=== PATIENT | male | born 1975 | race Caucasian/White ===

== ENCOUNTER → 2017-09-12 16:29 | Outpatient (REF) | payer BC, SELFPAY ==
[2017-09-12 21:43] LABS: HCT 42.4 % (40.0-50.0); HGB 14.3 g/dL (13.5-17.5); Mean Corp. HGB Concentration 33.7 g/dL (32.0-36.0); Mean Corpuscular Hemoglobin 29.9 pg (27.0-33.0); Mean Corpuscular Volume 88.7 fL (80-95); Mean Platelet Volume 11.5 fL (8.0-11.0); Platelet Count 309 x1000/uL (130-400); RBC 4.78 m/cumm (4.50-6.00); RBC Distribution Width 13.2 % (11.8-14.1)
[2017-09-12 21:59] LABS: ALT 67 U/L (12-78); AST 29 U/L (15-37); Albumin 4.2 g/dL (3.4-5.0); Alkaline Phosphatase 77 U/L (46-116); Anion Gap 10.4 mmol/L (3-11); BUN 13 mg/dL (7-18); Bilirubin, Total 0.3 mg/dL (0.2-1.0); CO2 25.6 mmol/L (21.0-32.0); CREATININE 1.16 mg/dL (0.70-1.30); Calcium 8.5 mg/dL (8.5-10.1); Chloride 104 mmol/L (98-107); Glucose 97 mg/dL (70-100); Potassium 3.9 mmol/L (3.5-5.1); Sodium 140 mmol/L (136-145); TSH (W/Ref FT4) 2.36 uIU/mL (0.358-3.74); Total Protein 7.3 g/dL (6.4-8.2)
[2017-09-12 23:03] LABS: ESR 11 MM/HR (0-15)
[2017-09-15 11:45] LABS: HIV-1/2 Ag & Ab Screen Negative (NEGAT)
[2017-09-15 13:19] LABS: Lyme Ab w Rflx to Lyme Confirm Negative
== END ==
LOC: NCHCN 16:29
PROVIDERS: PCP Nurse Practitioner Family; Visit Provider Family Medicine
DX: R53.81 Other malaise (principal); R59.1 Generalized enlarged lymph nodes
CPT/HCPCS: 80053; 85027; 85652; 87389; 84443; 86618

== ENCOUNTER 2018-05-08 12:12 | Observation (INO) | payer BC, SELFPAY ==
[2018-05-08 12:26] VITALS: BP 127/92; PULSE 89; RESP 20; TEMP 37.1; O2SAT 99
--- NOTE | 2018-05-08 12:37 | W.ED.GENAD ---
Discharge Plan Disposition Patient Disposition: [facility] INPATIENT Condition: Good Discharge Details Chief Complaint: Abd Prob Clinical Impression: Diverticulitis Primary Care Provider: Melissa Mcmullen ED Provider: Erick Gtz Home Meds and New Rx's Prescriptions: New ciprofloxacin HCl [Cipro] 500 mg tablet 500 mg PO BID Qty: 20 RF: 0 metronidazole [Flagyl] 500 mg tablet 500 mg PO TID Qty: 21 RF: 0 No Action acetaminophen [Tylenol] 325 MG tablet 650 mg PO Q6H PRN RF: 0 ibuprofen 200 MG tablet 600 mg PO BID PRN RF: 0 loratadine [Claritin] 10 MG tablet 10 mg PO DAILY RF: 0 sertraline 50 mg Tablet 50 mg PO DAILY RF: 0 Medical Decision Making This is a pleasant 42-year-old male with a past medical history of left orchiectomy, who presents today for abdominal pain and 1-2 days of diarrhea. Pain started this morning in the left upper abdominal quadrant, and is now radiated to his right periumbilical region. He has not eaten anything all day. Physical exam demonstrates notable tenderness the right lower quadrant right periumbilical region. No flank or CVA tenderness. No testicular tenderness on exam. Diarrhea is nonbloody and he has no red flags of recent antibiotic use. Notable concern for an acute intra-abdominal pathology including an appendicitis. Get a CT scan, rehydrate, control his pain. 1:34 PM Laboratory workup has returned, he does have an elevated white count at 17, however no evidence of bandemia. Moderate left shift. Renal function normal, electrolytes benign. CT scan has returned, and per Dr. Carpenter there is evidence of sigmoid diverticulitis, but no evidence of acute appendicitis. Appendix is visualized and is normal. No evidence of perforation or abscess. Reevaluation the patient is feeling much better. We will give an IV dose of Cipro and Flagyl here. I discussed admission versus discharge and the patient is preferring and requesting discharge home. We will do a p.o. trial, and to make sure pain is well controlled. His is a nurse, and demonstrates excellent knowledge and education of his current disease process. She agrees with the plan. If the patient is able to tolerate p.o., and his pain is controlled, I feel he can be discharged home with close follow-up. 4:27 PM We are unable to completely control the patient's pain. He is on his second round of Dilaudid, Tylenol, Toradol, and Bentyl. He has notable difficulty completing p.o. fluids. Because of this, his elevated white count, he did contact the surgeon Dr. Altman and discussed the case with her. She agrees with the need for admission, patient will be admitted to the floor for IV fluids, pain control, and IV antibiotics. I have extensively reviewed the treatment plan with the patient. I have addressed all patient concerns at this time. I have also discussed the plan with the admitting physician and they agree with the current assessment and plan and have agreed to assume responsibility for the patient. All parties demonstrate verbal understanding and agreement with our assessment and plan at this time. Exam(s) a CT:CT abdomen & pelvis w SYMPTOMS/DIAGNOSIS: RIGHT LOWER QUADRANT PAIN, ? APPENDICITIS CT SCAN OF THE ABDOMEN AND PELVIS: CT scan of the abdomen and pelvis was performed following the uneventful administration of intravenous contrast material. There is focal bowel wall thickening seen in the mid sigmoid colon with pericolonic inflammatory changes. There are diverticula seen in the colon. The findings are most suggestive of acute diverticulitis. No abscess or free air is seen. There is a normal appendix present. There is diffuse decreased attenuation of the liver consistent with fatty infiltration. The gallbladder, pancreas, spleen, adrenal glands, kidneys, ureters and bladder are unremarkable. The aorta is unremarkable. No significant abdominal or pelvic adenopathy or pneumoperitoneum is present. The osseous structures are intact. IMPRESSION: Findings consistent with acute sigmoid diverticulitis. The findings were discussed with Dr. Gtz of the Emergency Department on the date of the examination. HPI General Date/Time Provider Initiated Documentation: 05/08/18 12:13. HPI Narrative: This is a 42-year-old male with no significant past medical history except for a removed left testicle who presents today for evaluation of abdominal pain. The patient states that this morning he developed left upper abdominal pain, however as the day continued his pain radiated to the periumbilical region and now the right lower quadrant. He denies any dysuria or hematuria or increased urinary frequency he does admit to nausea but denies any vomiting. He did take a Tums but this is not improve his symptoms. He does admit to chills but denies a fever. He does also admit to 1-2 days of mild diarrhea with no blood. He denies any recent antibiotic use, or foreign travel or other sick contacts. Last meal was last night. He denies any other complaints or modifying factors. Of note he states that every pothole day hit because notable pain in his abdomen on the drive over. He denies any history of A. fib. He denies any history of stroke or MA. No other complaints at this time. No other modifying factors. Related Data Home Medications Medication Instructions Recorded Confirmed ibuprofen 600 mg PO BID PRN 05/14/13 05/08/18 acetaminophen [Tylenol] 650 mg PO Q6H PRN tab-cap 01/25/15 05/08/18 loratadine [Claritin] 10 mg PO DAILY 02/25/17 05/08/18 ciprofloxacin HCl [Cipro] 500 mg PO BID #20 tab 05/08/18 metronidazole [Flagyl] 500 mg PO TID #21 tab 05/08/18 sertraline 50 mg PO DAILY 05/08/18 05/08/18 Previous Rx's Medication Instructions Recorded ciprofloxacin HCl [Cipro] 500 mg PO BID #20 tab 05/08/18 metronidazole [Flagyl] 500 mg PO TID #21 tab 05/08/18 Allergies Allergy/AdvReac Type Severity Reaction Status Date / Time oxycodone AdvReac Mild Nausea Unverified 02/25/17 20:08 General Stated Complaint: Abd Prob BLAZE: 3 Review of Systems Review of Systems All systems reviewed & are unremarkable except as noted in HPI and below PFSH Social History Smoking/Tobacco Use Status: Former Tobacco Use Alcohol Intake: current Alcohol Intake frequency: holidays/special occasions only Drug use: Never Substance use type: does not use Do you feel safe at home: Yes Do you feel safe in your relationship?: Yes Exam Narrative Exam Narrative: 1.Const: Well-nourished, Well-developed, appearing stated age 2.Eyes: PERRL, no conjunctival injection, and symmetrical lids. 3.ENT: Atraumatic external nose and ears. Moist MM. Neck: Symmetric, trachea midline, No thyromegaly. 4.CVS: +S1/S2, No murmurs or gallops. Peripheral pulses 2+ and equal in all extremities. Brisk capillary refill in all extremities. 5.RESP: Unlabored respiratory effort. Clear to auscultation bilaterally. No wheezes rales or rhonchi 6.GI: Soft, notable right lower quadrant and right periumbilical tenderness on palpation. Voluntary guarding. Positive heel strike test bilaterally, worse on the right. No flank or CVA tenderness. No testicular tenderness. Normal cremasteric for the remaining testicle. No penile tenderness. No suprapubic tenderness. 7.MSK: Normocephalic/Atraumatic, Extremities w/o deformity or ttp No cyanosis or clubbing, Normal movement of all extremities 8.Skin: Warm, Dry. No rashes or lesions. 9.Neuro: veterinary assistant II-XII grossly intact. Sensation grossly intact, no focal neurologic deficits. 10.Psych: (AAO) x3. Appropriate mood and affect Course Vital Signs Temperature 37.1 C 05/08/18 12:26 Pulse 89 05/08/18 12:26 Respiratory Rate 20 05/08/18 12:26 Blood Pressure 127/92 H 05/08/18 12:26 Pulse Oximetry 99 05/08/18 12:26 Temperature 37.1 C 05/08/18 12:26 Temperature Source Temporal Artery Scan 05/08/18 12:26 Pulse 89 05/08/18 12:26 Respiratory Rate 20 05/08/18 12:26 Respiratory Effort Non-Labored 05/08/18 12:26 Blood Pressure 127/92 H 05/08/18 12:26 Blood Pressure Position Sitting 05/08/18 12:26 Pulse Oximetry 99 05/08/18 12:26 Oxygen Delivery Method Room Air 05/08/18 12:26 Oxygen Flow Rate 0 05/08/18 12:26 Pain Level 5 05/08/18 12:26
[2018-05-08] MEDS: Omnipaque 350 MG/ML 100 ML BTL IV (12:51)
[2018-05-08] MEDS: HYDROmorphone 2 MG/ML VIAL 1 MG IVP ×3 (12:57→20:20)
[2018-05-08] MEDS: Ondansetron 4 MG/2 ML VIAL IVP (12:58)
[2018-05-08] MEDS: Normal Saline 1,000 ML 1000 ML IV ×2 (12:58→14:20)
[2018-05-08 13:06] LABS: Lactate-non-spesis 1.2 mmol/l (0.6-1.4)
[2018-05-08 13:12] LABS: Abs Immature Grans 0.05 k/cumm (0.0-0.09); Absolute Basophil Count 0.02 k/cumm (0.0-0.2); Absolute Eosinophil Count 0.07 k/cumm (0.0-0.7); Absolute Lymphocyte Count 2.01 k/cumm (1.2-3.4); Absolute Monocyte Count 1.44 k/cumm (0.11-0.7); Absolute Neutrophil Count 13.93 k/cumm (1.2-6.7); Basophils % 0.1; Eosinophils % 0.4; HCT 43.8 % (40.0-50.0); HGB 14.9 g/dL (13.5-17.5); Immature Grans % 0.3; Lymphocytes % 11.5; Mean Corpuscular Hemoglobin 29.7 pg (27.0-33.0); Mean Corpuscular Volume 87.4 fL (80-95); Monocytes % 8.2; Neutrophils % 79.5; Platelet Count 305 x1000/uL (130-400); RBC 5.01 m/cumm (4.50-6.00); RBC Distribution Width 13.1 % (11.8-14.1); White Blood Cell Count 17.52 k/cumm (4.4-10.8)
[2018-05-08 13:21] LABS: PTT Activated 26.5 sec (21.0-31.4); Prothrombin Time 9.5 sec (9.3-11.0)
[2018-05-08 13:24] LABS: ALT 48 U/L (12-78); AST 18 U/L (15-37); Albumin 4.5 g/dL (3.4-5.0); Alkaline Phosphatase 68 U/L (46-116); BUN 14 mg/dL (7-18); Bilirubin, Total 0.6 mg/dL (0.2-1.0); CREATININE 1.03 mg/dL (0.70-1.30); Calcium 9.1 mg/dL (8.5-10.1); Chloride 100 mmol/L (98-107); Glucose 106 mg/dL (70-100); Lipase 119 U/L (73-393); Sodium 137 mmol/L (136-145)
[2018-05-08 13:29] VITALS: BP 145/81; PULSE 96; RESP 18; TEMP 37.2; O2SAT 96
[2018-05-08] MEDS: metroNIDAZOLE 500 MG/100 ML BAG 100 MG IVPB ×2 (13:35→22:31)
[2018-05-08 13:39] VITALS: BP 122/72; PULSE 86; RESP 18; O2SAT 94
[2018-05-08 14:26] LABS: Bilirubin Negative (Negative); Blood Trace-intact (Negative); Clarity Clear; Glucose Negative (Negative); Ketones Negative (Negative); Leukocyte Esterase Negative (Negative); Nitrite Negative (Negative); Urobilinogen 0.2 EU/dL (Up TO 0.2)
[2018-05-08] MEDS: Ketorolac 30 MG/ML VIAL IVP ×2 (14:29→22:30)
[2018-05-08] MEDS: Dicyclomine 20 MG TAB PO (14:33)
[2018-05-08] MEDS: Acetaminophen 500 MG TAB 1000 MG PO (14:34)
[2018-05-08 14:38] LABS: Bacteria Rare HPF (Negative); C & S Indicated? No; Casts Negative LPF (Negative); Crystals Negative HPF (Negative); Epithelial Cells Rare HPF (Negative); Mucus Negative (Negative); RBC 0-2 (0-2); WBC Negative HPF (0-5)
[2018-05-08] MEDS: CIPROFLOXACIN 400 MG/200 ML BAG 200 MG IVPB (14:43)
[2018-05-08 16:43] VITALS: BP 129/63; PULSE 75; RESP 16; TEMP 37.1; O2SAT 96
--- NOTE | 2018-05-08 17:16 | W.PM.HP.N ---
Date of service: 05/08/18 Time of Service: 17:17 Assessment and Plan (1) Diverticulitis large intestine w/o perforation or abscess w/o bleeding: Current visit: Yes Status: Acute 42 y/o male who presents with his first episode of acute diverticulitis. Initial plan in the ED was to discharge on po antibiotics after receiving a first dose of Cipro/Flagyl in the ED. However, patient is only taking minimal clears and his pain is requiring IV meds for control. Therefore, he is being admitted for bowel rest, IV antibiotics, and pain control. Diverticular disease discussed with patient and . Will follow-up CBC in am. If he is clinically improving, anticipate advancing diet and home in 1-2 days onpo abx. Further recommendations pending clinical course. Patient is also advised to have an outpatient colonoscopy in the near future to screen for colon cancer. He is advised to defer this for 6-8 weeks until the acute inflammation is resolved. He may follow-up with surgery at [facility] or get a referral from his PCP to a GI for the colonoscopy. Patient and his verbalized understanding of this. All questions answered. Patient and agreeable with plans as outlined above. History of Present Illness Chief Complaint: Abdominal pain Narrative: 42 y/o male seen with his at the bedside. Patient admitted through the ED with a one day h/o abdominal pain which woke him up from sleep ~ 0500 this morning. He has felt intermittently hot and cold but did not have any documented fever. (+) nausea but no emesis. Pain began in the LUQ and felt like gas pains. Pain then subsequently migrated to the periumbilical area then down to the suprapubic area and RLQ. He had one episode of diarrhea which was reportedly watery but not grossly bloody. He denies any similar pain in the past. He has had no prior colonoscopy or abdominal surgery. There is no known [facility] colon cancer. A cousin had some kind of bowel issue which required multiple resections but he does not know what it was. WBC ~ 17k. CT abd/pelvis today in the ED with IV contrast noted sigmoid diverticulitis. No abscess or perforation noted. Appendix noted to be normal in appearance. He c/o some dysuria after the CT. U/A unremarkable except for a trace of intact blood. Review of Systems Constitutional Reports system reviewed and no additional complaints, except as docu, Reports chills (subjective) and Reports fever(s) (subjective) Gastrointestinal Reports abdominal pain, Denies melena, Denies hematochezia, Reports diarrhea, Reports nausea and Denies vomiting Genitourinary Reports dysuria [facility] Surgical History H/O eye surgery (Acute) H/O skin graft (Acute) H/O unilateral orchiectomy (Acute) H/O vasectomy (Acute) Social History Smoking/Tobacco Use Status: Former Tobacco Use Alcohol Intake: current Alcohol Intake frequency: holidays/special occasions only Drug use: Never Substance use type: does not use Do you feel safe at home: Yes Do you feel safe in your relationship?: Yes Meds Home Medications Medication Instructions Recorded Confirmed Type ibuprofen 600 mg PO BID PRN 05/14/13 05/08/18 History acetaminophen [Tylenol] 650 mg PO Q6H PRN tab-cap 01/25/15 05/08/18 History loratadine [Claritin] 10 mg PO DAILY 02/25/17 05/08/18 History ciprofloxacin HCl [Cipro] 500 mg PO BID #20 tab 05/08/18 Rx metronidazole [Flagyl] 500 mg PO TID #21 tab 05/08/18 Rx sertraline 50 mg PO DAILY 05/08/18 05/08/18 History Allergies Allergy/AdvReac Type Severity Reaction Status Date / Time oxycodone AdvReac Mild Nausea Unverified 02/25/17 20:08 Exam Const General: cooperative and well developed Nutritional Appearance: obese Orientation: alert and oriented x3 [facility] Head: normocephalic and atraumatic Eyes Sclera: sclerae normal Neck Neck: trachea midline and supple Resp Effort & Inspection: normal respiratory effort and able to speak in complete sentences Auscultation: clear to auscultation bilaterally Cardio Jugular venous pressure: no JVD Rate: regular rate Rhythm: regular rhythm GI Inspection: non-distended and obesity Palpation: soft, not firm, no guarding, no masses, not rigid and tender (moderately tender in RLQ to LLQ and across suprapubic area) Auscultation: normal bowel sounds Skin General skin exam: no rashes or lesions noted and no jaundice Neuro General: alert and oriented x3 Speech: speech normal Results Imaging Abdomen CT scan report/results: report reviewed and image reviewed CT scan - pelvis: report reviewed and image reviewed Imaging Studies: Patient Name: CAROLINE ALCAZAR #: [id number]: ER Ordering Provider: Erick Gtz DOAccount #: [id number]: REG ER Primary Care Provider: Melissa Mcmullen Date of Exam: 05/08/18Sex: M : 1975Age: 42 Exam(s) a CT:CT abdomen & pelvis w SYMPTOMS/DIAGNOSIS: RIGHT LOWER QUADRANT PAIN, ? APPENDICITIS CT SCAN OF THE ABDOMEN AND PELVIS: CT scan of the abdomen and pelvis was performed following the uneventful administration of intravenous contrast material. There is focal bowel wall thickening seen in the mid sigmoid colon with pericolonic inflammatory changes. There are diverticula seen in the colon. The findings are most suggestive of acute diverticulitis. No abscess or free air is seen. There is a normal appendix present. There is diffuse decreased attenuation of the liver consistent with fatty infiltration. The gallbladder, pancreas, spleen, adrenal glands, kidneys, ureters and bladder are unremarkable. The aorta is unremarkable. No significant abdominal or pelvic adenopathy or pneumoperitoneum is present. The osseous structures are intact. IMPRESSION: Findings consistent with acute sigmoid diverticulitis. The findings were discussed with Dr. Gtz of the Emergency Department on the date of the examination. [id number]: Total DLP = 0.00 mGy-cm Ordered By: Erick Gtz DO CC: Dictated By: Dami Carpenter M.D. 05/08/18 1328 <Electronically signed by Dami Carpenter M.D.> 05/08/18 1527 Transcribed By: Gerard Dow 05/08/18 3783 This is privileged, confidential information intended only for the provider named. Any use or distribution by any person other than this provider is strictly prohibited. If you receive this report in error, please notify us immediately at [phone] and return the original report to us at the address above. Thank-you. Labs : 05/08/18 12:55 05/08/18 12:55 Laboratory Results - last 24 hr 05/08/18 05/08/18 05/08/18 12:55 12:55 12:55 WBC 17.52 H RBC 5.01 Hgb 14.9 Hct 43.8 MCV 87.4 MCH 29.7 MCHC 34.0 RDW 13.1 Plt Count 305 MPV 11.0 Immature Gran % 0.3 Neutrophils % 79.5 Lymphocytes % 11.5 Monocytes % 8.2 Eosinophils % 0.4 Basophils % 0.1 Absolute Neutrophils 13.93 H Absolute Lymphocytes 2.01 Absolute Monocytes 1.44 H Absolute Eosinophils 0.07 Absolute Basophils 0.02 PT INR APTT Sodium 137 Potassium 4.0 Chloride 100 Carbon Dioxide 27.0 Anion Gap 10.0 BUN 14 Creatinine 1.03 Estimated GFR/1.73 m2 >= 60.00 Glucose 106 H Lactate 1.2 Calcium 9.1 Total Bilirubin 0.6 AST 18 ALT 48 Alkaline Phosphatase 68 Total Protein 8.0 Albumin 4.5 Lipase 119 Urine Color Urine Clarity Urine pH Ur Specific [place] Urine Protein Urine Ketones Urine Blood Urine Nitrite Urine Bilirubin Urine Urobilinogen Ur Leukocyte Esterase Urine RBC Urine WBC Ur Epithelial Cells Urine Crystals Urine Bacteria Urine Casts Urine Mucus Ur Culture Indicated? Urine Glucose Patient ABO/Rh Antibody Screen 05/08/18 05/08/18 05/08/18 12:55 12:55 14:10 WBC RBC Hgb Hct MCV MCH MCHC RDW Plt Count MPV Immature Gran % Neutrophils % Lymphocytes % Monocytes % Eosinophils % Basophils % Absolute Neutrophils Absolute Lymphocytes Absolute Monocytes Absolute Eosinophils Absolute Basophils PT 9.5 INR 1.0 APTT 26.5 Sodium Potassium Chloride Carbon Dioxide Anion Gap BUN Creatinine Estimated GFR/1.73 m2 Glucose Lactate Calcium Total Bilirubin AST ALT Alkaline Phosphatase Total Protein Albumin Lipase Urine Color Yellow Urine Clarity Clear Urine pH 7.0 Ur Specific [place] 1.010 Urine Protein Negative Urine Ketones Negative Urine Blood Trace-intact H Urine Nitrite Negative Urine Bilirubin Negative Urine Urobilinogen 0.2 Ur Leukocyte Esterase Negative Urine RBC 0-2 Urine WBC Negative Ur Epithelial Cells Rare Urine Crystals Negative Urine Bacteria Rare Urine Casts Negative Urine Mucus Negative Ur Culture Indicated? No Urine Glucose Negative Patient ABO/Rh O Negative Antibody Screen Negative Last Vital Signs Temp 37.1 C 05/08/18 16:43 Pulse 75 05/08/18 16:43 Resp 16 05/08/18 16:43 BP 129/63 05/08/18 16:43 Pulse Ox 96 05/08/18 16:43
[2018-05-08 17:31] VITALS: BP 110/74; PULSE 83; RESP 16; TEMP 37.3; O2SAT 97
--- NOTE | 2018-05-08 18:01 | NUR.NOTE ---
patient arrived via stretcher from ed, Dr. Altman in to see patient. See page two for initial assessment and vitals.
[2018-05-08 21:28] VITALS: BP 130/84; PULSE 93; RESP 15; TEMP 37; O2SAT 95
--- NOTE | 2018-05-08 21:29 | NUR.NOTE ---
patient states cramping pain less frequent but just as intent
[2018-05-09 00:30] VITALS: BP 102/57; PULSE 85; RESP 16; TEMP 36.2; O2SAT 95
[2018-05-09] MEDS: HYDROmorphone 2 MG/ML VIAL 1 MG IVP ×5 (00:52→20:53)
[2018-05-09] MEDS: Normal Saline Flush 10 ML SYR IVP ×5 (00:52→20:54)
[2018-05-09] MEDS: CIPROFLOXACIN 400 MG/200 ML BAG 200 MG IVPB ×2 (01:52→14:16)
[2018-05-09] MEDS: Normal Saline 1,000 ML 125 ML IV ×2 (04:01→12:55)
[2018-05-09] MEDS: Ketorolac 30 MG/ML VIAL IVP ×3 (04:19→17:56)
[2018-05-09 04:24] VITALS: BP 119/79; PULSE 77; RESP 16; TEMP 36.8; O2SAT 95
[2018-05-09] MEDS: metroNIDAZOLE 500 MG/100 ML BAG 100 MG IVPB ×3 (07:15→22:11)
[2018-05-09 07:22] LABS: Abs Immature Grans 0.03 k/cumm (0.0-0.09); Absolute Basophil Count 0.01 k/cumm (0.0-0.2); Absolute Eosinophil Count 0.11 k/cumm (0.0-0.7); Absolute Lymphocyte Count 2.03 k/cumm (1.2-3.4); Absolute Monocyte Count 1.18 k/cumm (0.11-0.7); Absolute Neutrophil Count 8.81 k/cumm (1.2-6.7); Basophils % 0.1; Eosinophils % 0.9; HCT 40.2 % (40.0-50.0); HGB 13.2 g/dL (13.5-17.5); Immature Grans % 0.2; Lymphocytes % 16.7; Mean Corp. HGB Concentration 32.8 g/dL (32.0-36.0); Mean Corpuscular Hemoglobin 29.4 pg (27.0-33.0); Mean Corpuscular Volume 89.5 fL (80-95); Mean Platelet Volume 11.3 fL (8.0-11.0); Monocytes % 9.7; Neutrophils % 72.4; Platelet Count 253 x1000/uL (130-400); RBC 4.49 m/cumm (4.50-6.00); RBC Distribution Width 13.1 % (11.8-14.1); White Blood Cell Count 12.17 k/cumm (4.4-10.8)
--- NOTE | 2018-05-09 08:14 | INITIAL_ITS ---
- If Service Date Differs Date of service: 05/09/18 Time of Service: 08:12 Care Management Initial Assess REASON FOR HOSPITALIZATION:: Diverticulitis PAST MEDICAL HISTORY/PAST SURGICAL HISTORY:: H/O eye surgery (Acute). H/O skin graft (Acute). H/O unilateral orchiectomy (Acute). H/O vasectomy (Acute) PREVIOUS FUNCTIONAL STATUS/SOCIAL/FAMILY SUPPORTS:: Azar resides with his Yen in [place] as well as their two children. At baseline Abdullahi is independent in the community, he drives, and manages ADL's CURRENT FUNCTIONAL STATUS:: Currently Azar is lying in bed this morning. His and father are visiting with him. ADVANCE DIRECTIVES:: None on file Has patient been provided with information about the portal?: Yes Did the patient sign up for the portal?: No CODE STATUS:: Full Code INSURANCE COVERAGE / FINANCIAL ISSUES:: [employer] CURRENT HOME/COMMUNITY SERVICES/EQUIPMENT:: Currently Azar has no services or medical equipment in the community. PRIMARY CARE PHYSICIAN:: Melissa Mcmullen POTENTIAL DISCHARGE NEEDS:: F/U appointment with Dr. Altman PATIENT/FAMILY EDUCATION NEEDS:: Review DC instructions, any limitations, and ongoing DC planning discussion. Discuss 'Ask Me three' ANTICIPATED BARRIERS TO DISCHARGE:: None identified at this time. TRANSPORTATION:: Via private vehicle with family PLAN:: Abdullahi will return home with no anticipated services. He will f/U with Dr. Altman and plan of care as prescribed. He will transport via private vehicle with family when ready.
[2018-05-09 08:17] VITALS: BP 133/82; PULSE 97; RESP 20; TEMP 36.9; O2SAT 95
--- NOTE | 2018-05-09 10:20 | NUR.NOTE ---
Nursing Note: Patient's sister, Rosalind Case, called demanding patient be transferred [place] [facility] [place]. Stated she is an RN and she is afraid he will end up with a colostomy because he has no bowel sounds. Clinical Coordinator, Jeni Osei RN, made phone contact with Dr. Altman who will be in to see patient in 15 minutes. Also ordered x-ray which patient is going for now. Will call sister back with updated information. .
--- NOTE | 2018-05-09 10:35 | DI.RAD_ITS ---
SYMPTOM/DIAGNOSIS: ABD PAIN, NO BOWEL SOUNDS ABDOMEN: Five views were obtained. The bowel gas pattern is within normal limits. No free intraperitoneal air is seen on upright view. No evidence of bowel obstruction. CONCLUSION: Negative examination of the abdomen.
--- NOTE | 2018-05-09 11:10 | DI.VRAD_ITS ---
EXAM: XR Abdomen, 2 Views EXAM DATE/TIME: 05/09/2018 10:14 AM CLINICAL HISTORY: 42 years old, male; Pain; Abdominal pain; Generalized; Patient HX: Severe abdominal pain, no bowel sounds. Last bowel movement yesterday 05/08/18 at 10 [address] PT sts. Severe lower abdominal pain. TECHNIQUE: Imaging protocol: Frontal view of the abdomen/pelvis with upright view of the abdomen. COMPARISON: CT ABDOMEN PELVIS W 05/08/2018 1:06 PM FINDINGS: Gastrointestinal tract: Normal. No bowel dilation. Intraperitoneal space: Normal. No free air. Bones/joints: Unremarkable for age. IMPRESSION: No acute findings. Dictated and Authenticated by: Azar Monk MD. Ordering:DORITA Briggs MD
--- NOTE | 2018-05-09 11:20 | W.PM.PROGNOT ---
Date of Service Date of service: 05/09/18 Time of Service: 11:21 Assessment and Plan (1) Diverticulitis large intestine w/o perforation or abscess w/o bleeding: Current visit: Yes Status: Acute 42 y/o male who presents with his first episode of acute diverticulitis. Long discussion with patient, , and father at the bedside. Reviewed diverticular disease and the patient's clinical course. Reviewed his AXR from this am and his CT abd/pelvis from yesterday with the patient and his family. Although he is still having pain, he is improving overall. He remains afebrile, VSS, his leukocytosis and elevated neutrophil count are improving, he does have bowel sounds on my exam at this time, and he is passing some flatus. We discussed that he can have a functional ileus while his colon is still inflamed. There are no signs of bowel obstruction or free air on imaging this am. No free air or abscess noted on CT yesterday. His inquired if an NG would help. We discussed that there is no gastric or small bowel distention on imaging 05/08/18 or 05/09/18 and therefore, an NG is unlikely to offer any benefit at this time. Encouraged ambulation TID to stimulate GI motility. Will rest bowel with NPO status except for ice chips. Continue IV Cipro/Flagyl. Will schedule Toradol and acetaminophen IV with Dilaudid as ordered prn for better pain control. Will follow-up labs in am. Further recommendations pending clinical course. All questions answered. Patient thanked me for the explanation. He and his family appear to understand and agree with the discussion and plans as outlined above. Subjective Interval history since last seen: Patient seen with and father at bedside. Patient c/o persistent abdominal pain. No nausea or vomiting. (+) small amount of flatus x 2 when he got up to the toilet this am. No BM. Apparently he had some abdominal distention overnight and decreased bowel sounds. Nurse this am was reportedly unable to auscultate any bowel sounds. Stat AXR obtained. Films reviewed with patient and family at bedside. Air seen in colon. No gastric, enteric, or colonic distention seen. No air-fluid levels seen or free air seen. Prelim VRADS report notes no acute findings. WBC normalizing and down to ~12k this am. Neutrophil count decreasing. Afebrile overnight. Exam Const General: cooperative and no acute distress Nutritional Appearance: obese Orientation: alert and oriented x3 HENMT Head: normocephalic and atraumatic Eyes Sclera: sclerae normal Resp Effort & Inspection: normal respiratory effort and able to speak in complete sentences Cardio Jugular venous pressure: no JVD Rate: regular rate Rhythm: regular rhythm GI Inspection: non-distended and obesity Palpation: soft, not firm, no guarding, not rigid and tender (mildly tender across lower abdomen) Auscultation: hypoactive bowel sounds Skin General skin exam: no rashes or lesions noted and no jaundice Neuro General: alert and oriented x3 Speech: speech normal Objective Objective Clinical Data: Abnormal lab results 05/08/18 05/08/18 05/08/18 Range/Units 12:55 12:55 14:10 WBC 17.52 H (4.4-10.8) k/cumm RBC (4.50-6.00) m/cumm Hgb (13.5-17.5) g/dL MPV (8.0-11.0) fL Absolute Neutrophils 13.93 H (1.2-6.7) k/cumm Absolute Monocytes 1.44 H (0.11-0.7) k/cumm Glucose 106 H (70-100) mg/dL Urine Blood Trace-intact H (Negative) 05/09/18 Range/Units 06:35 WBC 12.17 H D (4.4-10.8) k/cumm RBC 4.49 L (4.50-6.00) m/cumm Hgb 13.2 L (13.5-17.5) g/dL MPV 11.3 H (8.0-11.0) fL Absolute Neutrophils 8.81 H (1.2-6.7) k/cumm Absolute Monocytes 1.18 H (0.11-0.7) k/cumm Glucose (70-100) mg/dL Urine Blood (Negative) Vital Signs Temperature 36.9 C 05/09/18 08:17 Temperature Source Tympanic 05/09/18 08:17 Pulse 97 H 05/09/18 08:17 Pulse Rhythm Regular 05/09/18 07:31 Respiratory Rate 20 05/09/18 08:17 Respiratory Effort Non-Labored 03/30/19 07:31 Respiratory Depth Normal 05/09/18 07:31 Respiratory Pattern Normal 05/09/18 07:31 Blood Pressure 133/82 05/09/18 08:17 Blood Pressure Position Sitting 05/08/18 12:26 Pulse Oximetry 95 05/09/18 08:17 Oxygen Delivery Method Room Air 05/09/18 08:17 Oxygen Flow Rate 0 05/09/18 08:17 Pain Level 9 05/09/18 09:49 Comment 05/09/18 04:24 Intake & Output 05/08/18 05/08/18 05/09/18 11:59 23:59 11:59 Intake Total 2400 / 2400 200 / 200 Output Total 900 / 900 Balance 2400 / 2400 -700 / -700 Weight 122.6 kg Intake: IV 2400 / 2400 200 / 200 Output: Urine 900 / 900 Other: Urine Color Light Holli Urine Appearance Clear Clear Urine Odor Normal Comment pt reports voiding in urinal at 2300. Emesis Description None Voiding Methods Urinal Laboratory Results WBC 12.17 k/cumm (4.4-10.8) H D 05/09/18 06:35 RBC 4.49 m/cumm (4.50-6.00) L 05/09/18 06:35 Hgb 13.2 g/dL (13.5-17.5) L 05/09/18 06:35 Hct 40.2 % (40.0-50.0) 05/09/18 06:35 MCV 89.5 fL (80-95) 05/09/18 06:35 MCH 29.4 pg (27.0-33.0) 05/09/18 06:35 MCHC 32.8 g/dL (32.0-36.0) 05/09/18 06:35 RDW 13.1 % (11.8-14.1) 05/09/18 06:35 Plt Count 253 x1000/uL (130-400) 05/09/18 06:35 MPV 11.3 fL (8.0-11.0) H 05/09/18 06:35 Immature Gran % 0.2 05/09/18 06:35 Neutrophils % 72.4 05/09/18 06:35 Lymphocytes % 16.7 05/09/18 06:35 Monocytes % 9.7 05/09/18 06:35 Eosinophils % 0.9 05/09/18 06:35 Basophils % 0.1 05/09/18 06:35 Absolute Neutrophils 8.81 k/cumm (1.2-6.7) H 05/09/18 06:35 Absolute Lymphocytes 2.03 k/cumm (1.2-3.4) 05/09/18 06:35 Absolute Monocytes 1.18 k/cumm (0.11-0.7) H 05/09/18 06:35 Absolute Eosinophils 0.11 k/cumm (0.0-0.7) 05/09/18 06:35 Absolute Basophils 0.01 k/cumm (0.0-0.2) 05/09/18 06:35 PT 9.5 sec (9.3-11.0) 05/08/18 12:55 INR 1.0 (0.9-1.1) 05/08/18 12:55 APTT 26.5 sec (21.0-31.4) 05/08/18 12:55 Sodium 137 mmol/L (136-145) 05/08/18 12:55 Potassium 4.0 mmol/L (3.5-5.1) 05/08/18 12:55 Chloride 100 mmol/L (98-107) 05/08/18 12:55 Carbon Dioxide 27.0 mmol/L (21.0-32.0) 05/08/18 12:55 Anion Gap 10.0 mmol/L (3-11) 05/08/18 12:55 BUN 14 mg/dL (7-18) 05/08/18 12:55 Creatinine 1.03 mg/dL (0.70-1.30) 05/08/18 12:55 Estimated GFR/1.73 m2 >= 60.00 (mL/min/1.73m2) 05/08/18 12:55 Glucose 106 mg/dL (70-100) H 05/08/18 12:55 Lactate 1.2 mmol/l (0.6-1.4) 05/08/18 12:55 Calcium 9.1 mg/dL (8.5-10.1) 05/08/18 12:55 Total Bilirubin 0.6 mg/dL (0.2-1.0) 05/08/18 12:55 AST 18 U/L (15-37) 05/08/18 12:55 ALT 48 U/L (12-78) 05/08/18 12:55 Alkaline Phosphatase 68 U/L (46-116) 05/08/18 12:55 Total Protein 8.0 g/dL (6.4-8.2) 05/08/18 12:55 Albumin 4.5 g/dL (3.4-5.0) 05/08/18 12:55 Lipase 119 U/L (73-393) 05/08/18 12:55 Urine Color Yellow (Yellow) 05/08/18 14:10 Urine Clarity Clear 05/08/18 14:10 Urine pH 7.0 (5-8) 05/08/18 14:10 Ur Specific [place] 1.010 (1.005-1.025) 05/08/18 14:10 Urine Protein Negative mg/dL (Negative) 05/08/18 14:10 Urine Ketones Negative mg/dL (Negative) 05/08/18 14:10 Urine Blood Trace-intact (Negative) H 05/08/18 14:10 Urine Nitrite Negative (Negative) 05/08/18 14:10 Urine Bilirubin Negative (Negative) 05/08/18 14:10 Urine Urobilinogen 0.2 EU/dL (Up TO 0.2) 05/08/18 14:10 Ur Leukocyte Esterase Negative (Negative) 05/08/18 14:10 Urine RBC 0-2 (0-2) 05/08/18 14:10 Urine WBC Negative HPF (0-5) 05/08/18 14:10 Ur Epithelial Cells Rare HPF (Negative) 05/08/18 14:10 Urine Crystals Negative HPF (Negative) 05/08/18 14:10 Urine Bacteria Rare HPF (Negative) 05/08/18 14:10 Urine Casts Negative LPF (Negative) 05/08/18 14:10 Urine Mucus Negative (Negative) 05/08/18 14:10 Ur Culture Indicated? No 05/08/18 14:10 Urine Glucose Negative mg/dL (Negative) 05/08/18 14:10 Patient ABO/Rh O Negative 05/08/18 12:55 Antibody Screen Negative 05/08/18 12:55
[2018-05-09] MEDS: ACETAMINOPHEN 1,000 MG/100 ML BTL 400 MG IVPB ×2 (12:00→20:53)
--- NOTE | 2018-05-09 12:25 | PHARADMIT ---
Admission Pharmacy Clinical Review DIVERTICULITIS Code Status Full Code Current Weight Wgt- 122.6 kg Renally Cleared and Narrow Therapeutic Index Meds CrCl~ 92 mL/min Meds-OK QTc Value / Action Taken na BP Control, Fever BP-133/82 Tmax- 37.0C Electrolytes reviewed Na- 137 K+4.0 DVT Prophylaxis No (surgery ??) Opiate Usage / Scheduled Bowel Regimen Ordered Yes No Plt/SCr for Heparin / Enoxaparin Plts-253 SCr-1.03 INR for Warfarin inr-1.0 H/H stable, WBC/Bands H&H- 13.2/40.2 WBC- 12.17 Antibiotic appropriateness Cipro, Flagyl Cultures and Sensitivities none Surgical ABX d/c within 24 hr na DM control / Insulin Dosing BG- 106 Heart Failure (Check EF%) (CARIDAD's, B-Block, Diuretics) NONE IV to PO Switch No Home Meds Reviewed Yes Home Meds Not Ordered Ibuprofen, Loratidine, Zoloft Comments
[2018-05-09 16:26] VITALS: BP 117/73; PULSE 77; RESP 20; TEMP 36.8; O2SAT 96
[2018-05-10] MEDS: Ketorolac 30 MG/ML VIAL IVP ×3 (00:20→12:08)
[2018-05-10] MEDS: Normal Saline Flush 10 ML SYR IVP ×2 (00:20→12:09)
[2018-05-10] MEDS: Normal Saline 1,000 ML 125 ML IV ×2 (00:22→10:59)
[2018-05-10 00:30] VITALS: BP 122/72; PULSE 60; RESP 16; TEMP 36.2; O2SAT 96
[2018-05-10] MEDS: CIPROFLOXACIN 400 MG/200 ML BAG 200 MG IVPB ×2 (02:56→14:10)
[2018-05-10] MEDS: ACETAMINOPHEN 1,000 MG/100 ML BTL 400 MG IVPB ×2 (04:59→12:08)
[2018-05-10] MEDS: metroNIDAZOLE 500 MG/100 ML BAG 100 MG IVPB (06:22)
[2018-05-10 06:56] LABS: Abs Immature Grans 0.04 k/cumm (0.0-0.09); Absolute Basophil Count 0.01 k/cumm (0.0-0.2); Absolute Eosinophil Count 0.36 k/cumm (0.0-0.7); Absolute Lymphocyte Count 1.71 k/cumm (1.2-3.4); Absolute Monocyte Count 0.74 k/cumm (0.11-0.7); Absolute Neutrophil Count 6.16 k/cumm (1.2-6.7); Basophils % 0.1; HCT 41.1 % (40.0-50.0); HGB 13.6 g/dL (13.5-17.5); Immature Grans % 0.4; Mean Corp. HGB Concentration 33.1 g/dL (32.0-36.0); Mean Corpuscular Hemoglobin 29.4 pg (27.0-33.0); Monocytes % 8.2; Neutrophils % 68.3; Platelet Count 265 x1000/uL (130-400); RBC 4.62 m/cumm (4.50-6.00); White Blood Cell Count 9.02 k/cumm (4.4-10.8)
[2018-05-10 07:02] LABS: Anion Gap 12.8 mmol/L (3-11); BUN 9 mg/dL (7-18); CO2 24.2 mmol/L (21.0-32.0); CREATININE 1.03 mg/dL (0.70-1.30); Calcium 8.7 mg/dL (8.5-10.1); Chloride 102 mmol/L (98-107); Glucose 105 mg/dL (70-100); Potassium 3.8 mmol/L (3.5-5.1); Sodium 139 mmol/L (136-145)
[2018-05-10 07:45] VITALS: BP 118/68; PULSE 85; RESP 18; TEMP 36.8; O2SAT 98
--- NOTE | 2018-05-10 14:39 | PDOC.CMPRO ---
- If Service Date Differs Date of service: 05/10/18 Time of Service: 14:39 Care Management Progress Note S/O: Abdullahi is lying in bed when this justowriter operator visits this morning, his dad and Yen are in the room. Abdullahi reports feeling better and being able to ambulate in the halls today. He does report that he has not had a bowel movement as of time of CM visit. A: 42 y/o male admitted 05/08/18 for Diverticulitis. P: Abdullahi will return home with no anticipated services. He will F/U with PCP and plan of care as prescribed. Abdullahi's Yen will transport him when ready.
--- NOTE | 2018-05-10 14:41 | W.PM.PROGNOT ---
Date of Service Date of service: 05/10/18 Time of Service: 14:42 Assessment and Plan (1) Diverticulitis large intestine w/o perforation or abscess w/o bleeding: Current visit: Yes Status: Acute A\\ PAD #2 for Simple diverticulitis P\\ Home today on clear liquids for 24 hours then advance to soft, low residual diet for 2 weeks Return to ER if has increased pain, N/V, fevers or bleeding Rx: Flagyl and Cipro Miralax Tylenol and Ibuprofen for pain Subjective Interval history since last seen: Doing well. He has had no pain. No N/V. Has been drinking fluids from the ice chips. He is passing gas and just had a small BM. Patient is anxious to go home. Exam Resp Effort & Inspection: normal respiratory effort Auscultation: clear to auscultation bilaterally Cardio Rate: regular rate Rhythm: regular rhythm Heart Sounds: no gallops, no murmurs and no rubs GI Inspection: normal to inspection Palpation: soft and tender (mild RLQ and LLQ) Objective Objective Clinical Data: Abnormal lab results 05/10/18 05/10/18 Range/Units 06:35 06:35 Absolute Monocytes 0.74 H (0.11-0.7) k/cumm Anion Gap 12.8 H (3-11) mmol/L Glucose 105 H (70-100) mg/dL Vital Signs Temperature 98.2 F 05/10/18 07:45 Temperature Source Tympanic 05/10/18 07:45 Pulse 85 05/10/18 07:45 Pulse Rhythm Regular 05/10/18 07:26 Respiratory Rate 18 05/10/18 07:45 Respiratory Effort Non-Labored 05/10/18 07:26 Respiratory Depth Normal 05/10/18 07:26 Respiratory Pattern Normal 05/10/18 07:26 Blood Pressure 118/68 05/10/18 07:45 Blood Pressure Position Sitting 05/08/18 12:26 Pulse Oximetry 98 05/10/18 07:45 Oxygen Delivery Method Room Air 05/10/18 07:45 Oxygen Flow Rate 0 05/10/18 07:45 Pain Level 0 05/10/18 07:45 Comment 05/09/18 04:24 Intake & Output 05/09/18 05/10/18 05/10/18 23:59 11:59 23:59 Intake Total 2600 / 2940 1410.000 / 1520.000 110 / 1520.000 Output Total 675 / 1575 1225 / 1225 Balance 1925 / 1365 185.000 / 295.000 110 / 295.000 Weight 267 lb 13.786 oz Intake: IV 2600 / 2940 1410.000 / 1520.000 110 / 1520.000 Output: Urine 675 / 1575 1225 / 1225 Other: Urine Color Light Holli Yellow Light Holli Urine Appearance Clear Clear Urine Odor Normal Normal Comment Voiding x2 in urinal. void in toilet Voiding Methods Urinal Urinal Laboratory Results WBC 9.02 k/cumm (4.4-10.8) 05/10/18 06:35 RBC 4.62 m/cumm (4.50-6.00) 05/10/18 06:35 Hgb 13.6 g/dL (13.5-17.5) 05/10/18 06:35 Hct 41.1 % (40.0-50.0) 05/10/18 06:35 MCV 89.0 fL (80-95) 05/10/18 06:35 MCH 29.4 pg (27.0-33.0) 05/10/18 06:35 MCHC 33.1 g/dL (32.0-36.0) 05/10/18 06:35 RDW 13.0 % (11.8-14.1) 05/10/18 06:35 Plt Count 265 x1000/uL (130-400) 05/10/18 06:35 MPV 11.0 fL (8.0-11.0) 05/10/18 06:35 Immature Gran % 0.4 05/10/18 06:35 Neutrophils % 68.3 05/10/18 06:35 Lymphocytes % 19.0 05/10/18 06:35 Monocytes % 8.2 05/10/18 06:35 Eosinophils % 4.0 05/10/18 06:35 Basophils % 0.1 05/10/18 06:35 Absolute Neutrophils 6.16 k/cumm (1.2-6.7) 05/10/18 06:35 Absolute Lymphocytes 1.71 k/cumm (1.2-3.4) 05/10/18 06:35 Absolute Monocytes 0.74 k/cumm (0.11-0.7) H 05/10/18 06:35 Absolute Eosinophils 0.36 k/cumm (0.0-0.7) 05/10/18 06:35 Absolute Basophils 0.01 k/cumm (0.0-0.2) 05/10/18 06:35 PT 9.5 sec (9.3-11.0) 05/08/18 12:55 INR 1.0 (0.9-1.1) 05/08/18 12:55 APTT 26.5 sec (21.0-31.4) 05/08/18 12:55 Sodium 139 mmol/L (136-145) 05/10/18 06:35 Potassium 3.8 mmol/L (3.5-5.1) 05/10/18 06:35 Chloride 102 mmol/L (98-107) 05/10/18 06:35 Carbon Dioxide 24.2 mmol/L (21.0-32.0) 05/10/18 06:35 Anion Gap 12.8 mmol/L (3-11) H 05/10/18 06:35 BUN 9 mg/dL (7-18) 05/10/18 06:35 Creatinine 1.03 mg/dL (0.70-1.30) 05/10/18 06:35 Estimated GFR/1.73 m2 >= 60.00 (mL/min/1.73m2) 05/10/18 06:35 Glucose 105 mg/dL (70-100) H 05/10/18 06:35 Lactate 1.2 mmol/l (0.6-1.4) 05/08/18 12:55 Calcium 8.7 mg/dL (8.5-10.1) 05/10/18 06:35 Total Bilirubin 0.6 mg/dL (0.2-1.0) 05/08/18 12:55 AST 18 U/L (15-37) 05/08/18 12:55 ALT 48 U/L (12-78) 05/08/18 12:55 Alkaline Phosphatase 68 U/L (46-116) 05/08/18 12:55 Total Protein 8.0 g/dL (6.4-8.2) 05/08/18 12:55 Albumin 4.5 g/dL (3.4-5.0) 05/08/18 12:55 Lipase 119 U/L (73-393) 05/08/18 12:55 Urine Color Yellow (Yellow) 05/08/18 14:10 Urine Clarity Clear 05/08/18 14:10 Urine pH 7.0 (5-8) 05/08/18 14:10 Ur Specific [place] 1.010 (1.005-1.025) 05/08/18 14:10 Urine Protein Negative mg/dL (Negative) 05/08/18 14:10 Urine Ketones Negative mg/dL (Negative) 05/08/18 14:10 Urine Blood Trace-intact (Negative) H 05/08/18 14:10 Urine Nitrite Negative (Negative) 05/08/18 14:10 Urine Bilirubin Negative (Negative) 05/08/18 14:10 Urine Urobilinogen 0.2 EU/dL (Up TO 0.2) 05/08/18 14:10 Ur Leukocyte Esterase Negative (Negative) 05/08/18 14:10 Urine RBC 0-2 (0-2) 05/08/18 14:10 Urine WBC Negative HPF (0-5) 05/08/18 14:10 Ur Epithelial Cells Rare HPF (Negative) 05/08/18 14:10 Urine Crystals Negative HPF (Negative) 05/08/18 14:10 Urine Bacteria Rare HPF (Negative) 05/08/18 14:10 Urine Casts Negative LPF (Negative) 05/08/18 14:10 Urine Mucus Negative (Negative) 05/08/18 14:10 Ur Culture Indicated? No 05/08/18 14:10 Urine Glucose Negative mg/dL (Negative) 05/08/18 14:10 Patient ABO/Rh O Negative 05/08/18 12:55 Antibody Screen Negative 05/08/18 12:55
--- NOTE | 2018-05-10 14:46 | W.PM.DS.N ---
Date of service: 05/10/18 Time of Service: 14:46 DS: Diagnosis Discharge Diagnosis (1) Diverticulitis large intestine w/o perforation or abscess w/o bleeding: Status: Acute Discharge Plan Disposition Patient Disposition: HOME Condition: Good Discharge Details Chief Complaint: Abd Prob Clinical Impression: Diverticulitis Reason For Visit: DIVERTICULITIS Admit Date/Time: 05/08/18 16:24 Admit Provider: Chester Altman Attending Provider: Chester Altman Primary Care Provider: Melissa Mcmullen ED Provider: Erick Gtz Hospital Course Hospital Course: Mr. Huerta is a pleasant 42 year old male who was admitted Saravanan night with Diverticulitis. There was no abscess and no perforation. Patient was started on IV antibiotics. Today his pain is gone, he is passing flatus and had a small BM. Patient would like to go home. His is a nurse and feels comfortable with him going home.He has been afebrile for 36 hours and WBC count is normal. Recommend clear liquids for 24 hours and then a soft, low residual diet. Home Meds and New Rx's Prescriptions: New metronidazole 500 mg tablet 500 mg PO TID 12 Days Qty: 36 RF: 0 ciprofloxacin HCl 500 mg tablet 500 mg PO BID 12 Days Qty: 24 RF: 0 Continued acetaminophen [Tylenol] 325 MG tablet 650 mg PO Q6H PRN RF: 0 ibuprofen 200 MG tablet 600 mg PO BID PRN RF: 0 loratadine [Claritin] 10 MG tablet 10 mg PO DAILY RF: 0 sertraline 50 mg Tablet 50 mg PO DAILY RF: 0 Discharge Instructions Instructions: Diverticulitis (DC), Diverticulitis Diet (DC) Additional Instructions: Activity at Home after surgery: 1. Make sure you walk outside at least 4 times per day 2. You should be able to climb a flight of stairs 3. No driving while in pain or taking pain medications Diet, Nutrition, & wound healin. Avoid alcohol until after you are recovered from your surgery and finish the Flagyl 2. Drink plenty of liquids to stay hydrated and avoid constipation 3. Eat a low fiber, soft diet Pain Medications: 1. Alternate Tylenol 650 mg and Ibuprofen 600 mg every 3 hours For Constipation: 1. Take Milk of Magnesia or MiraLax as needed for constipation Please call our office if you develop: 1. Fevers >101.5 2. Nausea or Vomiting 3. Worsening pain If after hours please call the Hospital at and ask to speak to the on-call surgeon Referrals: Rula Luis MD [ [facility] STAFF PHYSICIAN] - 05/22/18 8:00 am Activity:: Activity as Tolerated Equipment/Supplies:: No Equipment Needed Diet:: low fiber Discharge Orders Discharge Orders: Discharge Order (Routine); Ordered 05/10/18 Ordered By: Rula Luis DS: Data Vitals/I&O Vitals and I&O: Vital Signs Temperature 98.2 F 05/10/18 07:45 Temperature Source Tympanic 05/10/18 07:45 Pulse 85 05/10/18 07:45 Pulse Rhythm Regular 05/10/18 07:26 Respiratory Rate 18 05/10/18 07:45 Respiratory Effort Non-Labored 05/10/18 07:26 Respiratory Depth Normal 05/10/18 07:26 Respiratory Pattern Normal 05/10/18 07:26 Blood Pressure 118/68 05/10/18 07:45 Blood Pressure Position Sitting 05/08/18 12:26 Pulse Oximetry 98 05/10/18 07:45 Oxygen Delivery Method Room Air 05/10/18 07:45 Oxygen Flow Rate 0 05/10/18 07:45 Pain Level 0 05/10/18 07:45 Comment 05/09/18 04:24 Intake & Output 05/09/18 05/10/18 05/10/18 23:59 11:59 23:59 Intake Total 2600 / 2940 1410.000 / 1520.000 110 / 1520.000 Output Total 675 / 1575 1225 / 1225 Balance 1925 / 1365 185.000 / 295.000 110 / 295.000 Weight 267 lb 13.786 oz Intake: IV 2600 / 2940 1410.000 / 1520.000 110 / 1520.000 Output: Urine 675 / 1575 1225 / 1225 Other: Urine Color Light Holli Yellow Light Holli Urine Appearance Clear Clear Urine Odor Normal Normal Comment Voiding x2 in urinal. void in toilet Voiding Methods Urinal Urinal Labs on day of discharge: Labs from last 24 hours 05/10/18 05/10/18 06:35 06:35 WBC 9.02 RBC 4.62 Hgb 13.6 Hct 41.1 MCV 89.0 MCH 29.4 MCHC 33.1 RDW 13.0 Plt Count 265 MPV 11.0 Immature Gran % 0.4 Neutrophils % 68.3 Lymphocytes % 19.0 Monocytes % 8.2 Eosinophils % 4.0 Basophils % 0.1 Absolute Neutrophils 6.16 Absolute Lymphocytes 1.71 Absolute Monocytes 0.74 H Absolute Eosinophils 0.36 Absolute Basophils 0.01 Sodium 139 Potassium 3.8 Chloride 102 Carbon Dioxide 24.2 Anion Gap 12.8 H BUN 9 Creatinine 1.03 Estimated GFR/1.73 m2 >= 60.00 Glucose 105 H Calcium 8.7 PFSH Medical History Diverticulitis large intestine w/o perforation or abscess w/o bleeding (Acute) Surgical History H/O eye surgery (Acute) H/O skin graft (Acute) H/O unilateral orchiectomy (Acute) H/O vasectomy (Acute) Social History Smoking/Tobacco Use Status: Former Tobacco Use Alcohol Intake: current Alcohol Intake frequency: holidays/special occasions only Drug use: Never Substance use type: does not use Do you feel safe at home: Yes Do you feel safe in your relationship?: Yes
[2018-05-10] MEDS: Ciprofloxacin 500 MG TAB PO (15:27)
--- NOTE | 2018-05-10 16:12 | NUR.NOTE ---
Nursing Note: Pt's IV infiltrated while cipro infusing. No redness, pain, or warmth noted by patient ambulance operations supervisor. Measurements: L arm (5 above AC); 13.75 R arm (5 above AC); 15 Pt provided with instruction to heat and elevate arm. Aqua K used for heat. Pt discharged shortly after infiltration (1600) with no s/sx.
== END 2018-05-10 16:00 | disposition home or self-care (01) ==
LOC: ER 17:21 → MS 17:26
PROVIDERS: Admitting Provider Surgery; Emergency Provider Student in an Organized Health Care Education/Training Program; PCP Nurse Practitioner Family; Visit Provider Surgery
DX: K57.32 Diverticulitis of large intestine without perforation or abscess without bleeding (principal); R10.84 Generalized abdominal pain; R11.0 Nausea; R19.7 Diarrhea, unspecified; R30.0 Dysuria
CPT/HCPCS: 36415; 80048; 80053; 83690; 86850; 86900; 86901; 96361; 96365; 96367; 99222; 99232; 99233; 99239; 99285; 74019; 74177; 81003; 81015; 83605; 85025; 85610; 85730; 99284; G0378; J0131; J0744; J1885; J2405; J3490

== ENCOUNTER 2018-06-16 06:12 | Day surgery (SDC) | payer BC, SELFPAY ==
[2018-06-16 06:32] VITALS: BP 125/73; PULSE 70; RESP 16; TEMP 35.9; O2SAT 96
[2018-06-16] MEDS: Lactated Ringers 1,000 ML 80 ML IV (06:32)
--- NOTE | 2018-06-16 06:32 | ENDO_ITS ---
Date of service: 06/16/18 Time of Service: :39 Endoscopy Report DATE OF PROCEDURE: 06/16/18 PRE-OP DIAGNOSIS: GERD/ Colon Cancer Screening POST-OP DIAGNOSIS: other (GAstritis, esophagitis, colorectal polyps, mild left sided diverticulosis) PROCEDURE: 1. EGD with biopsies 2. Colonoscopy with bx SURGEON: Rula Luis ANESTHESIA: other (General/ ASA 2 ) ESTIMATED BLOOD LOSS: 4 PATHOLOGY: other (Pylorus bx, antrum bx, GE junction bx, distal esophagus bx, cecal polyp, rectal polyp ?) COMPLICATIONS: None DISPOSITION: same day INDICATIONS: Mr. Huerta is a pleasant 42 year old male who was seen in the office to discuss a colonoscopy after a bout of diverticulitis. He also has a family history of colon cancer and a cousin and paternal uncle. He also has been taking omeprazole for a long time and has never had an EGD. Both the colonoscopy and EGD were discussed. Risks, benefits and complications have been reviewed. Complications include but are not limited to bleeding, pain, perforation, missed small lesion/polyp, sore throat, aspiration and adverse reaction to the medications. Questions were entertained and answered to their satisfaction and they wished to proceed. No guarantees were given or implied. PREP: Miralax/Dulcolax PROCEDURE START TIME: :39 PROCEDURE END TIME: 08:07 COLONOSCOPY RETRACTION TIME: 12 minutes FINDINGS: Upper Endoscopy- severe inflammation of the stomach and esophagus Colonoscopy- colorectal polyps and very mild diverticulosis of the descending colon PROCEDURE DESCRIPTION: After informed consent was obtained the patient was take to the procedure room and placed in a supine position. Monitors were applied and a time out was done. The patients name, date of , procedure type, allergies to medications and metal in their body was reviewed. A bite block was placed and the patient was sedated. Once sedated and comfortable the gastroscope was advanced through the oropharynx which was grossly normal into the esophagus. The proximal and mid- esophagus were normal. In the distal esophagus there was inflammation noted. The scope was advanced into the stomach and through the pylorus into the 3rd portion of the duodenum. The duodenum was noted to be normal. The scope was retracted back into the stomach and biopsies were done in the antrum to rule out H. pylori. There were no ulcers. Biopsies were done of the pylorus as well. The scope was retroflexed. The cardia and fundus were noted to be normal. There was no hiatal hernia noted. The scope was retracted back into the esophagus and biopsies were done of the GE junction to rule out Aquino's. The Z line was irregular. The GE junction was at 38 cm. Biopsies were also done of the distal esophagus at 35 cm. While the patient was still sedated they were placed in a left decubitous position. A rectal exam was done. External exam was normal. Internal exam revealed a normal sphincter tone and no palpable masses. The prostate was not easily felt. What I was able to feel was smooth. The scope was then introduced and retro-flexed. No internal hemorrhoids were identified. The scope was then advanced to the cecum without difficulty. The TI and appendiceal orifice were identified. The prep was adequate. The scope was then slowly retracted over 12 minutes back into the rectum. One polyp was removed with cold forceps in the cecum and one in the rectum. A handfull of diverticula were noted in the descending colon. The scope was removed and the patient was woken up and taken back to Same day surgery in stable condition. The patient tolerated the procedure well and there were no immediate complications. Follow up: Depends on final pathology. Will start patient on Omeprazole daily.
--- NOTE | 2018-06-16 06:36 | W.PM.DSUDISC ---
Discharge Plan Disposition Patient Disposition: HOME Condition: Good Discharge Details Reason For Visit: GERD/ hx of Diverticulitis Attending Provider: Rula Luis Primary Care Provider: Melissa Mcmullen Home Meds and New Rx's Prescriptions: New omeprazole 40 mg capsule,delayed release(DR/EC) 40 mg PO DAILY Qty: 30 RF: 5 Continued acetaminophen [Tylenol] 325 MG tablet 650 mg PO Q6H PRN RF: 0 ibuprofen 200 MG tablet 600 mg PO BID PRN RF: 0 loratadine [Claritin] 10 MG tablet 10 mg PO DAILY RF: 0 sertraline 50 mg Tablet 50 mg PO DAILY RF: 0 Discontinued bisacodyl [Dulcolax (bisacodyl)] 5 mg tablet,delayed release (DR/EC) 5 mg PO ONCE Qty: 4 RF: 0 polyethylene glycol 3350 17 gram powder in packet 255 g PO DAILY Qty: 15 RF: 0 Discharge Instructions Instructions: Colonoscopy (DC), Upper Endoscopy (DC), Diet for Stomach Ulcers and Gastritis (GEN), Gastritis (DC), Esophagitis (DC), Colorectal Polyps (DC) Additional Instructions: Findings: 1. Severe inflammation of the stomach and esophagus 2. 2 benign appearing polyps and mild diverticulosis of the left colon Follow up: I will call with results Please call if you develop: fevers >101.5 Nausea or Vomiting Abdominal pain that is not transient DAY SURGERY UNIT POST COLONOSCOPY INSTRUCTIONS 1. Because there will be medication in your system for the next 24 hours, you may feel a little sleepy. Your coordination will be affected. Therefore: a. Do not drive or operate dangerous equipment for 24 hours. b. Do not drink alcohol beverages for 24 hours (not even beer). c. Plan to go home and rest for the day. 2. Generally there are no restrictions on your activity after a day or so has gone by, but you may feel a bit fatigued for a few days. 3 After you arrive home you may have a light meal and return to a normal diet as you can tolerate it without feeling sick to your stomach. 4. After surgery, you may feel pain or discomfort. This should be only transient, but if it persists please contact your doctor. 5. If there are any questions regarding the findings of your procedure, please feel free to contact your doctor. 6. If you are unable to contact your doctor with a problem, contact the hospital at [phone]. 7. Continue all your regular medications unless directed otherwise. I understand the above instructions and have no questions. Signature of Patient or Responsible Adult Escort Date/Time Name of Responsible Adult Escort Signature of Nurse Date/Time Activity:: Activity as Tolerated Diet:: high fiber diet Discharge Orders Discharge Orders: Discharge Order (Routine); Ordered 06/16/18 Ordered By: Rula Luis DS: Diagnosis Discharge Diagnosis (1) S/P colonoscopy: Status: Acute (2) H/O esophagogastroduodenoscopy: Status: Chronic (3) H/O diverticulitis of colon: Status: Acute (4) Colorectal polyps: Status: Acute (5) Esophagitis: Status: Acute (6) Gastritis: Status: Acute (7) Diverticula of colon: Status: Acute
--- NOTE | 2018-06-16 07:41 | STOM_PTH ---
PATIENT: Azar Huerta LOC: [facility] U#:[id number] AGE/SX: 42/M ROOM: RE06/16/[address]: Rula Luis MD : 1975 BED: DIS: 06/16/2018 SPEC #: [id number] RECD: 06/16/18 12:49 STATUS: ULYSSES RE #: [id number] CAROL: 06/16/18 07:[address]: Rula Luis DEPT: Surgical Specimen RECD BY: Shawanda Terrell ENTERED: 06/16/18 12:52 SP TYPE: STOMACH OTHR DR: Melissa Mcmullen Tissues: 1 - STOMACH BIOPSY 2 - STOMACH BIOPSY 3 - ESOPHAGUS BIOPSY 4 - ESOPHAGUS BIOPSY 5 - BIOPSY BOWEL 6 - BIOPSY BOWEL Procedures: GROSS AND MICRO LEVEL 4 Comments: [id number]
[2018-06-16] MEDS: FAMOTIDINE 20 MG/50 ML BAG (08:08)
[2018-06-16 08:58] VITALS: BP 119/57; PULSE 67; RESP 16; TEMP 35.7; O2SAT 99
== END 2018-06-16 09:30 | disposition home or self-care (01) ==
PROVIDERS: PCP Nurse Practitioner Family; Visit Provider Surgery
PROC: (CPT 45380; principal; 2018-06-16 07:30)
DX: Z09 Encounter for follow-up examination after completed treatment for conditions other than malignant neoplasm (principal); Z87.19 Personal history of other diseases of the digestive system; K57.30 Diverticulosis of large intestine without perforation or abscess without bleeding; D12.0 Benign neoplasm of cecum; K62.1 Rectal polyp; Z80.0 Family history of malignant neoplasm of digestive organs; K21.0 Gastro-esophageal reflux disease with esophagitis; K31.89 Other diseases of stomach and duodenum
CPT/HCPCS: 45380; 43239; 88305; J2250; J3010

== ENCOUNTER 2018-12-21 08:53 | Day surgery (SDC) | payer BC, SELFPAY ==
--- NOTE | 2018-12-21 07:02 | W.PM.ENDDOP ---
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 Huerta is a pleasant 43 year old who was diagnosed with Aquino's esophagitis. His PPI dose was increased. He is here today for surveillance of the Aquino's. Risks, benefits and complications have been reviewed. Complications include but are not limited to bleeding, pain, perforation, sore throat, aspiration, and adverse reaction to the medications. Questions were entertained and answered to their satisfaction and they wished to proceed. No guarantees were given or implied. PREP: Miralax/Dulcolax PROCEDURE START TIME: :36 PROCEDURE END TIME: :43 FINDINGS: Mild chronic gastritis Mild esophagitis PROCEDURE DESCRIPTION: After informed consent was obtained the patient was take to the procedure room and placed in a supine position. Monitors were applied and a time out was done. The patients name, date of , procedure type, allergies to medications and metal in their body was reviewed. A bite block was placed and the patient was sedated. Once sedated and comfortable the gastroscope was advanced through the oropharynx which was grossly normal into the esophagus. The proximal and mid-esophagus were normal. In the distal esophagus there was mild inflammation noted. The inflammation was improved from 6 months ago. No ulcers were identified. The scope was advanced into the stomach and through the pylorus into the 3rd portion of the duodenum. The duodenum was noted to be normal. The scope was retracted back into the stomach and biopsies were done to rule out H. pylori. There were no ulcers. The scope was retroflexed. The cardia and fundus were noted to be normal. The scope was retracted back into the esophagus and biopsies were done of the GE junction to rule out Aquino's. The Z line was irregular in 2 areas. The GE junction was at 35 cm. The scope was removed and the patient was woken up and taken back to [facility] in stable condition. Follow up: 2 years. I will call with results and hopefully be able to change his PPI to daily.
--- NOTE | 2018-12-21 07:04 | W.PM.DSUDISC ---
Discharge Plan Disposition Patient Disposition: HOME Condition: Good Discharge Details Reason For Visit: EGD Attending Provider: Rula Luis Primary Care Provider: Beth Delatorre Home Meds and New Rx's Prescriptions: Continued bupropion HCl 300 mg tablet extended release 24 hr 300 mg PO QAM Qty: 90 RF: 2 acetaminophen [Tylenol] 325 MG tablet 650 mg PO Q6H PRN RF: 0 loratadine [Claritin] 10 MG tablet 10 mg PO DAILY RF: 0 omeprazole 40 mg capsule,delayed release(DR/EC) 40 mg PO DAILY Qty: 30 RF: 5 Discharge Instructions Instructions: Upper Endoscopy (DC) Additional Instructions: Findings: mild inflammation. Much better then last time Follow up: 2 years most likely. I will call you with results of the biopsies. Please call if you develop: fevers >101.5 Nausea or Vomiting Abdominal pain that is not transient DAY SURGERY UNIT POST ENDOSCOPY INSTRUCTIONS 1. Because there will be medication in your system for the next 24 hours, you may feel a little sleepy. Your coordination will be affected. Therefore: a. Do not drive or operate dangerous equipment for 24 hours. b. Do not drink alcohol beverages for 24 hours (not even beer). c. Plan to go home and rest for the day. 2. Generally there are no restrictions on your activity after a day or so has gone by, but you may feel a bit fatigued for a few days. 3 After you arrive home you may have a light meal and return to a normal diet as you can tolerate it without feeling sick to your stomach. 4. After surgery, you may feel pain or discomfort. This should be only transient, but if it persists please contact your doctor. 5. If there are any questions regarding the findings of your procedure, please feel free to contact your doctor. 6. If you are unable to contact your doctor with a problem, contact the hospital at [phone]. 7. Continue all your regular medications unless directed otherwise. I understand the above instructions and have no questions. Signature of Patient or Responsible Adult Escort Date/Time Name of Responsible Adult Escort Signature of Nurse Date/Time Activity:: Activity as Tolerated Diet:: As Tolerated Discharge Orders Discharge Orders: Discharge Order (Routine); Ordered 12/21/18 Ordered By: Rula Luis DS: Diagnosis Discharge Diagnosis (1) H/O esophagogastroduodenoscopy: Status: Chronic
[2018-12-21 08:58] VITALS: BP 141/81; PULSE 79; RESP 16; TEMP 36.1; O2SAT 97
[2018-12-21] MEDS: Lactated Ringers 1,000 ML 80 ML IV (09:21)
--- NOTE | 2018-12-21 09:40 | STOM_PTH ---
PATIENT: Azar Huerta LOC: [facility] U#:[id number] AGE/SX: 43/M ROOM: RE12/21/[address]: Rula Luis MD : 1975 BED: DIS: 12/21/2018 SPEC #: [id number] RECD: 12/21/18 12:35 STATUS: ULYSSES REQ #: [id number] CAROL: 12/21/18 09:[address]: Rula Luis DEPT: Surgical Specimen RECD BY: Shawanda Terrell ENTERED: 12/21/18 12:36 SP TYPE: STOMACH OTHR DR: Beth Delatorre APRN Tissues: 1 - STOMACH BIOPSY 2 - ESOPHAGUS BIOPSY Procedures: GROSS AND MICRO LEVEL 4 Comments: [id number]
[2018-12-21 10:23] VITALS: BP 107/68; PULSE 75; RESP 16; TEMP 36.6; O2SAT 96
== END 2018-12-21 10:30 | disposition home or self-care (01) ==
LOC: SUR 08:53
PROVIDERS: Visit Provider Surgery
PROC: 0DJ68ZZ Inspection of Stomach, Via Natural or Artificial Opening Endoscopic (ICD-10-PCS; CPT 43235; principal; 2018-12-21 09:30)
DX: K22.70 Barrett's esophagus without dysplasia (principal); K20.9 Esophagitis, unspecified; K29.50 Unspecified chronic gastritis without bleeding; Z87.19 Personal history of other diseases of the digestive system
CPT/HCPCS: 43239; 88305

== ENCOUNTER 2019-02-14 12:34 | Emergency (ER) | payer OTHER, BC, SELFPAY ==
[2019-02-14 12:39] VITALS: BP 148/93; PULSE 79; RESP 18; TEMP 36.5; O2SAT 97
--- NOTE | 2019-02-14 12:59 | W.ED.GENAD ---
Discharge Plan Disposition Patient Disposition: HOME Condition: Stable Discharge Details Chief Complaint: Orthopedic Clinical Impression: Closed fracture of sacrum Primary Care Provider: Beth Delatorre ED Provider: Arpita Jaramillo Home Meds and New Rx's Prescriptions: Continued bupropion HCl 300 mg tablet extended release 24 hr 300 mg PO QAM Qty: 90 RF: 2 acetaminophen [Tylenol] 325 MG tablet 650 mg PO Q6H PRN RF: 0 omeprazole 40 mg capsule,delayed release(DR/EC) 40 mg PO DAILY Qty: 90 RF: 4 loratadine [Claritin] 10 MG tablet 10 mg PO DAILY RF: 0 ibuprofen 800 mg Tablet 800 mg PO PRN PRNRF: 0 Discharge Instructions Instructions: Sacral Fracture (ED) Additional Instructions: Your x-ray noted a fracture of a possible fracture of your sacrum. As you have pain in this area after a fall, this will be treated as a fracture. Treatment includes rest, ice, sitting on a doughnut or pillow for pain relief. Follow-up with your primary care doctor in 1 week. Return to the emergency department with any worsening or new concerning symptoms. Stand Alone Forms: Work Release Discharge Data Discharge Physician: Arpita Jaramillo Medical Decision Making 43-year-old male presents with pain in his tailbone after fall this morning. Patient states he was at work when he slipped and fell and hit a step and then onto the frozen ground with his mid back and tailbone. He denies any other injuries. He denies head injury, chest pain, abdominal pain, neck or extremity pain. He took Motrin earlier this morning. Patient has tenderness to palpation midline lumbar and sacrum and coccyx. He is moving all extremities. No focal deficits. Normal gait. X-ray noted curvilinear lucency distal sacrum which may represent nondisplaced fracture of unknown age. As patient has pain in this area from an acute injury, will treat as a new fracture. He was given a dose of ibuprofen here. Advised on the importance of rest, ice, Motrin or Tylenol, and do not a pillow when sitting. He was advised to follow-up with his primary care doctor as needed and return to the ER if he develops bowel or bladder incontinence, saddle anesthesia, leg weakness or numbness. Medical Records Medical records reviewed: Yes I reviewed the patient's medical records. Imaging Data Radiologic Study: Radiologist's impression: XR Sacrum and Coccyx, 2 or More Views Exam date and time: 02/14/2019 12:59 PM Age: 43 years old Clinical indication: Injury or trauma; Fall; Initial encounter; Blunt trauma (contusions or hematomas) TECHNIQUE: Imaging protocol: XR of the sacrum and coccyx, 2 or more views. COMPARISON: CT ABDOMEN PELVIS W 05/08/2018 1:06 PM FINDINGS: Bones/joints: Curvilinear lucency in the distal sacrum may represent nondisplaced fracture of unknown age. Soft tissues: Normal. IMPRESSION: Curvilinear lucency in the distal sacrum may represent nondisplaced fracture of unknown age XR Lumbosacral Spine, 4 or 5 Views Exam date and time: 02/14/2019 1:18 PM Age: 43 years old Clinical indication: Injury or trauma; Fall; Initial encounter; Blunt trauma (contusions or hematomas) TECHNIQUE: Imaging protocol: XR of the lumbosacral spine, 4 or 5 views. COMPARISON: XR SACRUM COCCYX 02/14/2019 1:12 PM FINDINGS: Vertebrae: There is no evidence of acute fracture.There is no evidence of malalignment or dislocation. Anterior osteophyte formation at L1 and L2 Soft tissues: Normal. IMPRESSION: There is no evidence of acute fracture.There is no evidence of malalignment or dislocation. [facility] General Mode of arrival: ambulatory. Date/Time Provider Initiated Documentation: 02/14/19 12:58. Limitations to Documentation: no limitations. Information obtained by: patient. History of Present Illness 43 year old M presents to the emergency department with the chief complaint of Fall onto [facility], Patient started experiencing this hour(s) (This morning) and it has been constant. No relieving factors improve symptom(s), Movement worsens symptoms and Other factors that worsen symptoms (Sitting on bottom) . Patient notes denies chest pain, diaphoresis, fever/chills, headaches, loss of appetite, nausea/vomiting, rash, seizure, shortness of breath, syncope and weakness. Patient did receive the following treatments prior to arrival, none Related Data Home Medications Medication Instructions Recorded Confirmed acetaminophen [Tylenol] 650 mg PO Q6H PRN tab-cap 01/25/15 02/14/19 loratadine [Claritin] 10 mg PO DAILY 02/25/17 02/14/19 bupropion HCl 300 mg 24 hr tablet, 300 mg PO QAM #90 tab 10/15/18 02/14/19 extended release omeprazole 40 mg capsule,delayed 40 mg PO DAILY #90 cap 01/20/19 02/14/19 release ibuprofen 800 mg PO PRN PRN 02/14/19 02/14/19 Previous Rx's Medication Instructions Recorded bupropion HCl 300 mg 24 hr tablet, 300 mg PO QAM #90 tab 10/15/18 extended release omeprazole 40 mg capsule,delayed 40 mg PO DAILY #90 cap 01/20/19 release Allergies Allergy/AdvReac Type Severity Reaction Status Date / Time oxycodone AdvReac Mild Nausea Verified 02/14/19 12:42 General Stated Complaint: Orthopedic BLAZE: 4 Review of Systems All systems reviewed & are unremarkable except as noted in HPI and below Constitutional Constitutional: Reports as per HPI, Denies chills and Denies fever(s) Eyes Eyes: Denies blurry vision ENT Ears, Nose, Mouth, and Throat: Denies dizziness, Denies sore throat and Denies throat swelling Cardiovascular Cardiovascular: Denies chest pain and Denies dyspnea Respiratory Respiratory: Denies cough and Denies dyspnea Gastrointestinal Gastrointestinal: Denies abdominal pain, Denies diarrhea and Denies vomiting Genitourinary Genitourinary: Denies hematuria and Denies dysuria Musculoskeletal Musculoskeletal: Reports back pain and Denies numbness Integumentary/Breasts Skin/Breast: Denies lesions and Denies rash Neurologic Neurologic: Denies dizziness, Denies focal weakness and Denies numbness Allergic/Immunologic Allergic/Immunologic: Denies throat swelling [facility] Medical History Anxiety (Acute) 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 (Acute) Chronic pain following surgery or procedure (Acute) after vasectomy Colorectal polyps (Chronic ~06/16/18) Diverticulitis large intestine w/o perforation or abscess w/o bleeding (Chronic) Esophagitis (Chronic ~06/16/18) Gastritis (Chronic ~06/16/18) H/O diverticulitis of colon (Resolved) Increased body mass index (BMI) (Chronic) Surgical History H/O esophagogastroduodenoscopy (Chronic ~12/21/18) 06/2018- Aquino's H/O eye surgery (Acute) 1985 lazy eye H/O skin graft (Acute) left arm H/O unilateral orchiectomy (Acute) left H/O vasectomy (Acute ~10/2008) S/P colonoscopy (Acute ~06/16/18) Family History Paternal Grandfather , 61 Colon cancer Paternal Cousin Colon cancer Maternal Grandfather , 92 Heart disease Heart attack Mother Alcohol abuse Father Asthma Hyperlipidemia Alcohol abuse Sister Multiple sclerosis Sister No problems noted. Sister No problems noted. Brother Substance abuse Maternal Grandmother , 71 No problems noted. Paternal Grandmother , 66 No problems noted. Social History Smoking/Tobacco Use Status: Former Tobacco Use Quit Date: 02/11/16 Tobacco: How many years used: 15 Alcohol Intake: current Alcohol Intake frequency: holidays/special occasions only Alcohol type: beer, wine and hard liquor Drug use: Current Sobriety Substance use type: former substance user and marijuana Counseling given: No Counseling provided: none Details: denies THC use since July 2018. Caregiver/Support person: No Household members: spouse, family and children Housing: house Communication Needs: None Pets and animals: Yes Pets and animals: dog(s) and other Details: Rabbit Do you think of yourself as: straight/heterosexual Current gender identity: male What is your relationship status?: How often do you talk on the phone with friends or family?: decline to answer How often do you get together with friends or relatives?: decline to answer How often do you attend latter-day or scientologist services?: decline to answer Do you belong to any clubs or organized social groups?: decline to answer Panel score (0-1 are the most socially isolated patients): 1 What type of physical activity do you participate in: other Details: Yard work Duration: decline to answer Frequency: decline to answer Shanell/Jain: None Special shanell needs: No Seatbelt use: always Helmet use: Yes Helmet use: always Drive intox 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 Do you feel safe at home: Yes Do you feel safe in your relationship?: Yes Exam Const General: cooperative, healthy appearing and no acute distress [facility] Head: normal to inspection Face and sinus: normal facial exam Eyes General: appearance normal, both eyes and all related structures Pupils: PERRL EOM: EOM intact bilaterally Neck Neck: normal visual inspection and No submandibular swelling Lymphatic: no lymphadenopathy noted Chest Chest: normal inspection of the chest and no tenderness Resp Effort & Inspection: normal respiratory effort and able to speak in complete sentences Auscultation: clear to auscultation bilaterally Cardio Rate: regular rate Rhythm: regular rhythm GI Inspection: normal to inspection Palpation: soft, not firm, not rigid and nontender Auscultation: normal bowel sounds Back/Spine/Pelvis Back/spine/pelvis image: 1. Tenderness to palpation of midline lumbar spine down to coccyx. No evidence of trauma, rash or lesions. No open wounds. Skin General skin exam: no rashes or lesions noted Neuro General: alert, awake, oriented x3, gait normal and moves all extremities Cognition: normal cognition Speech: speech normal Motor: muscle tone normal throughout Sensory Exam: no sensory deficits noted Extrem General: normal to inspection, full ROM, normal capillary refill, no calf tenderness bilaterally and no edema Psych Appearance: grossly normal Mental Status: mental status grossly normal Speech and Movement: speech and movement normal Affect: normal affect Course Vital Signs Vital signs: Vital Signs Temperature 97.7 F 02/14/19 12:39 Pulse 79 02/14/19 12:39 Respiratory Rate 18 02/14/19 12:39 Blood Pressure 148/93 H 02/14/19 12:39 Pulse Oximetry 97 02/14/19 12:39 Temperature 97.7 F 02/14/19 12:39 Temperature Source Skin 02/14/19 12:39 Pulse 79 02/14/19 12:39 Respiratory Rate 18 02/14/19 12:39 Respiratory Effort Non-Labored 02/14/19 12:40 Blood Pressure 148/93 H 02/14/19 12:39 Blood Pressure Position Sitting 02/14/19 12:39 Pulse Oximetry 97 02/14/19 12:39 Oxygen Delivery Method Room Air 02/14/19 12:39 Oxygen Flow Rate 0 02/14/19 12:39 Pain Level 7 02/14/19 12:39
--- NOTE | 2019-02-14 13:12 | DI.RAD_ITS ---
EXAM: XR SACRUM COCCYX INDICATION: s/p fall onto tailbone, r/o acute fracture. COMPARISON: No exams were available for comparison TECHNIQUE: 2D digital imaging was performed. FINDINGS: No fracture is identified. SI joints appear intact. Pubic symphysis is not widened. IMPRESSION: Negative sacrum and coccyx.
--- NOTE | 2019-02-14 13:16 | DI.RAD_ITS ---
EXAM: XR LUMBAR SPINE COMPLETE INDICATION: s/p fall onto bottom, r/o acute fracture. COMPARISON: No exams were available for comparison TECHNIQUE: 2D digital imaging was performed. FINDINGS: No fracture, spondylolysis or spondylolisthesis seen. The disc spaces are well maintained. Endplate osteophytes are noted at L1-2. SI joints appear intact. IMPRESSION: Mild degenerative changes. No acute findings.
[2019-02-14] MEDS: Ibuprofen 600 MG TAB PO (13:56)
--- NOTE | 2019-02-14 14:12 | DI.VRAD_ITS ---
PROCEDURE INFORMATION: Exam: XR Sacrum and Coccyx, 2 or More Views Exam date and time: 02/14/2019 12:59 PM Age: 43 years old Clinical indication: Injury or trauma; Fall; Initial encounter; Blunt trauma (contusions or hematomas) TECHNIQUE: Imaging protocol: XR of the sacrum and coccyx, 2 or more views. COMPARISON: CT ABDOMEN PELVIS W 05/08/2018 1:06 PM FINDINGS: Bones/joints: Curvilinear lucency in the distal sacrum may represent nondisplaced fracture of unknown age. Soft tissues: Normal. IMPRESSION: Curvilinear lucency in the distal sacrum may represent nondisplaced fracture of unknown age Dictated and Authenticated by: Abiola Dunn MD. Ordering:GOVIND Palm MD
--- NOTE | 2019-02-14 14:13 | DI.VRAD_ITS ---
PROCEDURE INFORMATION: Exam: XR Lumbosacral Spine, 4 or 5 Views Exam date and time: 02/14/2019 1:18 PM Age: 43 years old Clinical indication: Injury or trauma; Fall; Initial encounter; Blunt trauma (contusions or hematomas) TECHNIQUE: Imaging protocol: XR of the lumbosacral spine, 4 or 5 views. COMPARISON: XR SACRUM COCCYX 02/14/2019 1:12 PM FINDINGS: Vertebrae: There is no evidence of acute fracture.There is no evidence of malalignment or dislocation. Anterior osteophyte formation at L1 and L2 Soft tissues: Normal. IMPRESSION: There is no evidence of acute fracture.There is no evidence of malalignment or dislocation. Dictated and Authenticated by: Abiola Dunn MD. Ordering:GOVIND Palm MD
== END 2019-02-14 14:49 | disposition home or self-care (01) ==
PROVIDERS: Emergency Provider Physician Assistant
DX: S32.19XA Other fracture of sacrum, initial encounter for closed fracture (principal); W00.0XXA Fall on same level due to ice and snow, initial encounter; Y99.0 Civilian activity done for income or pay
CPT/HCPCS: 99284; 72110; 72220; 99283

== ENCOUNTER 2019-03-26 00:32 | Outpatient (CLI) | payer BC, SELFPAY ==
[2019-03-26 07:56] LABS: Hemoglobin A1C 6.1 % (3.8-5.6)
[2019-03-26 08:27] LABS: ALT 49 U/L (16-63); AST 20 U/L (15-37); Albumin 4.1 g/dL (3.4-5.0); Alkaline Phosphatase 66 U/L (46-116); BUN 17 mg/dL (7-18); Bilirubin, Total 0.5 mg/dL (0.2-1.0); CREATININE 1.08 mg/dL (0.70-1.30); Calculated LDL 170 mg/dL (<100); Chloride 103 mmol/L (98-107); Cholesterol 249 mg/dL (<200); Glucose 112 mg/dL (74-106); HDL Cholesterol 44 mg/dL (40-60); Potassium 4.4 mmol/L (3.5-5.1); Sodium 141 mmol/L (136-145); Triglyceride 179 mg/dL (<150)
[2019-03-29 13:39] LABS: Testosterone, Total 410 ng/dL (240-950)
== END 2019-03-26 00:52 ==
DX: Z00.00 Encounter for general adult medical examination without abnormal findings (principal); R73.01 Impaired fasting glucose; F41.9 Anxiety disorder, unspecified; I10 Essential (primary) hypertension; R45.86 Emotional lability; R68.89 Other general symptoms and signs; K20.9 Esophagitis, unspecified; K57.32 Diverticulitis of large intestine without perforation or abscess without bleeding
CPT/HCPCS: 36415; 80053; 80061; 84403; 83036

== ENCOUNTER 2020-07-18 15:06 | Outpatient (REF) | payer BC, SELFPAY ==
[2020-07-18 20:25] LABS: Abs Immature Grans 0.05 10^3/uL (0.0-0.06); Absolute Basophil Count 0.05 10^3/uL (0.0-0.2); Absolute Eosinophil Count 0.13 10^3/uL (0.0-0.7); Absolute Lymphocyte Count 3.09 10^3/uL (1.2-3.4); Absolute Monocyte Count 0.77 10^3/uL (0.1-0.8); Absolute Neutrophil Count 5.89 10^3/uL (1.2-6.7); Basophils % 0.5; Eosinophils % 1.3; HCT 45.6 % (40.0-50.0); HGB 14.9 g/dL (13.5-17.5); Immature Grans % 0.5; MCH 29.2 pg (27.0-33.0); MCHC 32.7 % (32.0-36.0); MCV 89.4 fL (80-95); MPV 11.1 fL (8.0-11.0); Monocytes % 7.7; Nucleated RBC 0 %; Platelet Count 356 10^3/uL (130-400); RDW 12.2 % (11.8-14.1); WBC 9.98 10^3/uL (4.4-10.8)
== END 2020-07-18 15:07 | disposition home or self-care (01) ==
LOC: LBN 15:06
PROVIDERS: Visit Provider Nurse Practitioner Family
DX: K57.32 Diverticulitis of large intestine without perforation or abscess without bleeding (principal)
CPT/HCPCS: 85025

== ENCOUNTER 2020-10-17 04:36 | Outpatient (CLI) | payer BC, SELFPAY ==
[2020-10-17 09:06] LABS: ALT 52 U/L (16-63); AST 22 U/L (15-37); Albumin 4.2 g/dL (3.4-5.0); Alkaline Phosphatase 64 U/L (46-116); Anion Gap 7.2 mmol/L (3-11); BUN 16 mg/dL (7-18); Bilirubin, Total 0.3 mg/dL (0.2-1.0); CO2 28.8 mmol/L (21.0-32.0); CREATININE 1.2 mg/dL (0.70-1.30); Calcium 9.1 mg/dL (8.5-10.1); Chloride 104 mmol/L (98-107); Glucose 127 mg/dL (74-106); Potassium 4.5 mmol/L (3.5-5.1); Sodium 140 mmol/L (136-145)
[2020-10-17 09:25] LABS: Calculated LDL 159 mg/dL (<100); Cholesterol 239 mg/dL (<200); HDL Cholesterol 39 mg/dL (40-60); Triglyceride 208 mg/dL (<150)
== END 2020-10-17 04:37 | disposition home or self-care (01) ==
LOC: LBO 04:36
DX: Z00.00 Encounter for general adult medical examination without abnormal findings (principal); E78.5 Hyperlipidemia, unspecified
CPT/HCPCS: 36415; 80053; 80061

== ENCOUNTER 2020-11-14 03:08 | Outpatient (CLI) | payer BC, SELFPAY ==
[2020-11-14 10:48] LABS: Source Nasal/Nares
[2020-11-14 14:40] LABS: COVID-19 PCR Negative (Negative)
== END 2020-11-14 03:09 | disposition home or self-care (01) ==
LOC: LBO 03:08
PROVIDERS: Visit Provider Surgery
DX: Z20.822 Contact with and (suspected) exposure to COVID-19 (principal); Z01.818 Encounter for other preprocedural examination
CPT/HCPCS: 87635

== ENCOUNTER 2020-11-15 09:56 | Day surgery (SDC) | payer BC, SELFPAY ==
--- NOTE | 2020-11-15 06:32 | ENDO_ITS ---
Date of service: 11/15/20 Time of Service: 10:50 Endoscopy Report DATE OF PROCEDURE: 11/15/20 PRE-OP DIAGNOSIS: Aquino's esophagitis POST-OP DIAGNOSIS: same PROCEDURE: EGD with biopsies SURGEON: Rula Luis ANESTHESIA TYPE: General:No Airway (Jonatan Ramirez, LATOSHA) ESTIMATED BLOOD LOSS: 3 PATHOLOGY: other (gastric bx, GE junction bx) COMPLICATIONS: None DISPOSITION: same day INDICATIONS: Abdullahi is back to see me today for another EGD for surveillance of his Aquino's. He had some increased stress at work and his heartburn worsened. It is now starting to settle down a bit but he still has some increased symptoms. He is otherwise healthy. Risks, benefits and complications have been reviewed. Complications include but are not limited to bleeding, pain, perforation, sore throat, aspiration, and adverse reaction to the medications. Questions were entertained and answered to their satisfaction and they wished to proceed. No guarantees were given or implied. Discussed COVID testing and restriction of his movements prior to EGD. EGD under sedatio FINDINGS: mild chronic inflammation of the stomach and GE junction PROCEDURE DESCRIPTION: After informed consent was obtained the patient was take to the procedure room and placed in a supine position. Monitors were applied and a time out was done. The patients name, date of , procedure type, allergies to medications and metal in their body was reviewed. A bite block was placed and the patient was sedated. Once sedated and comfortable the gastroscope was advanced through the oropharynx which was grossly normal into the esophagus. The proximal and mid- esophagus were normal. In the distal esophagus there was mild inflammation and signs of Aquino's noted. The scope was advanced into the stomach and through the pylorus into the 3rd portion of the duodenum. The duodenum was noted to be normal. The scope was retracted back into the stomach. There was mild chronic inflammation noted and biopsies were done to rule out H. pylori. There were no ulcers. The scope was retroflexed. The cardia and fundus were noted to be normal. There was a hiatal hernia noted. The scope was retracted back into the esophagus and biopsies were done of the GE junction to rule out Aquino's. The Z line was regular. The GE junction was at 32 cm. The scope was removed and the patient was woken up and taken back to [facility] in stable condition. Follow up: will depend on results
--- NOTE | 2020-11-15 06:33 | W.PM.DSUDISC ---
Discharge Plan Disposition Patient Disposition: HOME Condition: Good Discharge Details Reason For Visit: egd Attending Provider: Rula Luis Primary Care Provider: Beth Delatorre Home Meds and New Rx's Prescriptions: Continued loratadine [Claritin] 10 mg tablet 10 mg PO DAILY Qty: 90 RF: 4 acetaminophen [Tylenol] 325 MG tablet 650 mg PO Q6H PRN RF: 0 ibuprofen 400 mg tablet 400 mg PO TID PRN (Reason: pain) Qty: 90 RF: 6 omeprazole 40 mg capsule,delayed release(DR/EC) 40 mg PO DAILY Qty: 90 RF: 4 bupropion HCl 300 mg tablet extended release 24 hr 300 mg PO QAM Qty: 90 RF: 3 Discharge Instructions Additional Instructions: Findings: mild inflammation of the stomach and Aquino's Follow up: I will call with results Please call if you develop: fevers >101.5 Nausea or Vomiting Abdominal pain that is not transient Rectal bleeding that is more then a tbsp A hard abdomen and inability to pass gas DAY SURGERY UNIT POST ENDOSCOPY INSTRUCTIONS Instructions for everyone who is given Anesthesia: For your safety, please do the following for the next 24 Hours: a. Do not drive or operate dangerous equipment b. Do not drink alcohol beverages or use any recreational drugs for the first 24 hours or while taking pain medications. The medications in your body may have a reaction that can be dangerous. c. Do not make any important decisions or sign any important papers 1. Generally there are no restrictions on your activity after a day or so has gone by, but you may feel a bit fatigued for a few days. 2. After you arrive home you may have a light meal and return to a normal diet as you can tolerate it without feeling sick to your stomach. 3. After surgery, you may feel pain or discomfort. This should be only transient, but if it persists please contact your doctor. 4. If there are any questions regarding the findings of your procedure, please feel free to contact your doctor. 6. If you are unable to contact your doctor with a problem, contact the hospital at [phone]. 7. Continue all your regular medications unless directed otherwise. I understand the above instructions and have no questions. Signature of Patient or Responsible Adult Escort Date/Time Name of Responsible Adult Escort Signature of Nurse Date/Time Activity:: Activity as Tolerated Diet:: As Tolerated Discharge Orders Discharge Orders: Discharge Order (Routine); Ordered 11/15/20 Ordered By: Rula Luis
[2020-11-15 10:10] VITALS: BP 139/98; PULSE 75; RESP 16; TEMP 36.3; O2SAT 98
[2020-11-15] MEDS: Lactated Ringers 1,000 ML 80 ML IV (10:24)
--- NOTE | 2020-11-15 10:26 | W.ANESPRE ---
General Info Date of Service Date Performed: 11/15/20 Height: 5 ft 9 in Weight: 113.7 kg Body Mass Index (BMI): 37.0 Surgical Procedure: Operation Date: 11/15/20 11:05 Proposed Procedures Side Surgeon p Gastroscopy Rula Luis MD Meds Allergies and Home Medications Allergies Allergy/AdvReac Type Severity Reaction Status Date / Time oxycodone AdvReac Mild Nausea Verified 11/15/20 10:14 Home Medication Medication Instructions Recorded acetaminophen [Tylenol] 650 mg PO Q6H PRN tab-cap 01/25/15 ibuprofen 400 mg tablet 400 mg PO TID PRN #90 tab 08/25/19 omeprazole 40 mg capsule,delayed 40 mg PO DAILY #90 cap 07/27/20 release bupropion HCl 300 mg 24 hr tablet, 300 mg PO QAM #90 tab 07/28/20 extended release loratadine 10 mg tablet 10 mg PO DAILY #90 tab 10/02/20 Current Visit Medications: Current Medications Generic Name Dose Route Start Last Admin Trade Name Freq PRN Reason Stop Dose Admin Hyoscyamine Sulfate 0.125 mg 11/15/20 06:34 Hyoscyamine 0.125 Mg Sl/Oral/Chew SL DIRECTED PRN Ringer's Solution 1,000 mls @ 80 mls/hr 11/15/20 06:00 11/15/20 10:24 IV 12/14/20 23:59 80 mls/hr INFUSION NANCY Administration IV Miscellaneous Supplies 1 each 11/15/20 06:00 Iv Access IV 12/14/20 23:59 DIRECTED NANCY Ondansetron HCl 4 mg 11/15/20 06:34 Ondansetron 4 Mg/2 Ml Vial IVP Q4H PRN PRN Nausea / Vomiting Sodium Chloride 0 ml 11/15/20 06:00 Normal Saline Flush 10 Ml Syr IV 12/14/20 23:59 PRN PRN Sodium Chloride 0 ml 11/15/20 06:00 Normal Saline 10 Ml Vial IJ 12/14/20 23:59 DIRECTED PRN Sterile Water 0 ml 11/15/20 06:00 Water,Injection,Sterile 10 Ml Vial IJ 12/14/20 23:59 DIRECTED PRN PFSH Active Problems Active Problems: Problem Status Onset Code Elevated fasting glucose R73.01 Allergy T78.40XA Mood disorder F39 Hyperlipemia E78.5 H/O esophagogastroduodenoscopy ~12/21/18 Z98.890 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 K22.70 Anxiety F41.9 Increased body mass index (BMI) R63.8 Diverticula of colon K57.30 Gastritis ~06/16/18 K29.70 Esophagitis ~06/16/18 K20.9 Colorectal polyps ~06/16/18 K63.5 H/O diverticulitis of colon Z87.19 Medical History Medical History Anxiety 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 06/2018 Chronic pain following surgery or procedure after vasectomy Colorectal polyps (~06/16/18) Diverticulitis large intestine w/o perforation or abscess w/o bleeding Esophagitis (~06/16/18) Gastritis (~06/16/18) H/O diverticulitis of colon Increased body mass index (BMI) Sacral fracture, closed Surgical History Surgical History H/O esophagogastroduodenoscopy (~12/21/18) 06/2018- Aquino's H/O eye surgery 1985 lazy eye H/O skin graft left arm H/O unilateral orchiectomy left H/O vasectomy (~10/2008) S/P colonoscopy (~06/16/18) Tobacco Smoking/Tobacco Use Status: Former Tobacco Use Tobacco: How many years used: 15 Passive smoking exposure: Yes Alcohol Alcohol Intake: current Alcohol intake frequency: holidays/special occasions only Alcohol type: beer and hard liquor Substance Use Substance use: Never Substance use type: does not use Counseling given: No Vital Signs and Lab Results Vital Signs Most Recent Vital Signs in EMR: Most Recent Vital Signs Temp Pulse Resp BP Pulse Ox 36.3 C L 75 16 139/98 H 98 11/15/20 10:10 11/15/20 10:10 11/15/20 10:10 11/15/20 10:10 11/15/20 10:10 Lab Results Blood Type / Crossmatch: No Data to Display Complete Blood Count: No Data to Display Complete Metabolic Panel: Sodium Level 140 mmol/L (136-145) 10/17/20 07:16 10/17/20 Potassium Level 4.5 mmol/L (3.5-5.1) 10/17/20 07:16 10/17/20 Chloride Level 104 mmol/L (98-107) 10/17/20 07:16 10/17/20 Carbon Dioxide Level 28.8 mmol/L (21.0-32.0) 10/17/20 07:16 10/17/20 Blood Urea Nitrogen 16 mg/dL (7-18) 10/17/20 07:16 10/17/20 Creatinine 1.2 mg/dL (0.70-1.30) 10/17/20 07:16 10/17/20 Estimated GFR/1.73 m2 >= 60.00 (mL/min/1.73m2) 10/17/20 07:16 10/17/20 Calcium Level 9.1 mg/dL (8.5-10.1) 10/17/20 07:16 10/17/20 Albumin 4.2 g/dL (3.4-5.0) 10/17/20 07:16 10/17/20 Glucose Level 127 mg/dL (74-106) H 10/17/20 07:16 10/17/20 Liver Function Panel: Alanine Aminotransferase (ALT/SGPT) 52 U/L (16-63) 10/17/20 07:16 10/17/20 Aspartate Amino Transf (AST/SGOT) 22 U/L (15-37) 10/17/20 07:16 10/17/20 Coagulation Panel: No Data to Display Cardiac Panel: No Data to Display Arterial Blood Gas: No Data to Display Venous Blood Gas: No Data to Display Pancreas Panel: No Data to Display Thyroid Panel: No Data to Display Infectious Disease: Coronavirus (COVID-19)(PCR) Negative (Negative) 11/14/20 08:42 11/14/20 Coronavirus 2019 Source Nasal/Nares 11/14/20 08:42 11/14/20 Blood Cultures: No Data to Display Toxicology Panel: No Data to Display Anesthesia Assessment and Plan Anesthesia History Personal History: No History of Anesthesia Complications Family History: No Family History of Anesthesia Complications Exercise Tolerance Exercise Tolerance: Metabolic Equivalents>4 Pertinent Negatives Pertinent Negatives: No Symptoms of GERD (Well controlled with medication), No Major Cardiovascular Symptoms or Complaints, No Major Pulmonary Symptoms or Complaints and No History of CVA/TIA Cardiac & Pulmonary Exam Cardiac Exam: Normal S1/S2 Heart Sounds Pulmonary Exam: Clear Bilateral Breath Sounds Airway Exam Known Difficult Airway: No Mallampati Class: 2 Mouth Opening: Normal (> 3cm) Thyromental Distance: Greater than 3 cm Neck Range of Motion: Full ROM Neck Circumference: Normal Teeth Condition: Normal Dentition ASA Classification ASA Score: ASA 2 Emergency Case?: No NPO Status NPO Status: NPO Clears >2 hours, Solids >8 hours Anesthesia Plan Resuscitation Status: Full Code Anesthesia Technique: General Anesthesia Airway Planned: Natural Airway Monitors Used: Standard Monitors
[2020-11-15 10:28] VITALS: BMI 37.0
--- NOTE | 2020-11-15 10:40 | STOM_PTH ---
PATIENT: Azar Huerta LOC: [facility] U#:[id number] AGE/SX: 45/M ROOM: RE11/15/[address]: Rula Luis MD : 1975 BED: DIS: 11/15/2020 SPEC #: [id number] RECD: 11/15/20 12:59 STATUS: ULYSSES REQ #: [id number] CAROL: 11/15/20 10:[address]: Rula Luis DEPT: Surgical Specimen RECD BY: Shawanda Terrell ENTERED: 11/15/20 13:00 SP TYPE: STOMACH OTHR DR: Beth Delatorre APRN Tissues: 1 - STOMACH BIOPSY 2 - ESOPHAGUS BIOPSY Procedures: GROSS AND MICRO LEVEL 4 Comments: [id number]
[2020-11-15 10:59] VITALS: BP 139/90; PULSE 83; RESP 16; TEMP 36.6; O2SAT 98
--- NOTE | 2020-11-15 11:01 | W.ANESPOSTOP ---
Postoperative Evaluation Date, Time and Location Date Performed: 11/15/20 Time Performed: 11:01 Patient Location: Day Surgery Unit Vital Signs Most Recent Imported Vital Signs: Most Recent Vital Signs Temp Pulse Resp BP Pulse Ox 36.3 C L 75 16 139/98 H 98 11/15/20 10:10 11/15/20 10:10 11/15/20 10:10 11/15/20 10:10 11/15/20 10:10 Most Recent Manually Entered Vital Signs: Adult Blood Pressure: 139/90 Heart Rate: 85 Respirations: 12 Oxygen Saturation (%): 98 Temperature (C): 36.3 C Pain Score (0-10 Scale): 0 Pain Score Most Recent Pain Score: Most Recent Pain Score Pain Level 0 11/15/20 10:10 Assessment Mental Status: Awake (Alert & Oriented to Patient Baseline) Airway and Respiratory Function: Patent airway with normal (patient baseline) respiratory exam Cardiovascular Function: Hemodynamically Stable Hydration Status: Adequately Hydrated Nausea & Vomiting: No Nausea or Vomiting Pain: Pt. Denies Any Pain Peripheral Nerve Block: Patient did not receive a nerve block
[2020-11-15 11:03] VITALS: BP 139/90; PULSE 85; RESP 12; TEMPC 36.3; O2SAT 98
[2020-11-15 11:29] VITALS: BP 136/86; PULSE 73; RESP 16; TEMP 36.6; O2SAT 73
== END 2020-11-15 11:55 | disposition home or self-care (01) ==
LOC: SUR 09:57
PROVIDERS: Visit Provider Surgery
PROC: 0DJ68ZZ Inspection of Stomach, Via Natural or Artificial Opening Endoscopic (ICD-10-PCS; CPT 43235; principal; 2020-11-15 11:00)
DX: K22.70 Barrett's esophagus without dysplasia (principal); K29.70 Gastritis, unspecified, without bleeding; K44.9 Diaphragmatic hernia without obstruction or gangrene
CPT/HCPCS: 43239; 88305; J2001

== ENCOUNTER 2021-02-26 09:39 | Outpatient (CLI) | payer BC, SELFPAY ==
[2021-02-27 00:26] LABS: COVID-19 RT-PCR UVMMC Result Negative (Negative)
== END 2021-02-26 09:40 | disposition home or self-care (01) ==
PROVIDERS: Visit Provider Nurse Practitioner Family
DX: Z20.822 Contact with and (suspected) exposure to COVID-19 (principal)
CPT/HCPCS: U0003

== ENCOUNTER 2022-07-24 17:16 | Emergency (ER) | payer BC, SELFPAY ==
[2022-07-24 17:19] VITALS: BP 156/91; PULSE 68; RESP 15; TEMP 36.3; O2SAT 98
--- NOTE | 2022-07-24 17:30 | DI.RAD_ITS ---
Exam(s) XR FINGER LT INDEX EXAM: XR FINGER LT INDEX CLINICAL HISTORY: traumatic laceration. TECHNIQUE: 2D digital imaging was performed. COMPARISON: No exams were available for comparison FINDINGS: 3 views Laceration injury. Second-index finger there is a fracture at the base of the distal phalanx of the 2nd-index finger with mild displacement. The IP joint is involved. No radiopaque foreign body. IMPRESSION: Index finger fractures CIS deep to soft tissue laceration evident. DATA REPOSITORY: RADIATION DOSE DELIVERED:
--- NOTE | 2022-07-24 17:53 | ED.GENADUL_ITS ---
Discharge Plan Disposition Patient Disposition: Home Condition: Improving Discharge Details Clinical Impression: Laceration of finger, left, complicated Primary Care Provider: Rogerio Gaitan ED Provider: Uche Helton Home Meds and New Rx's Prescriptions: New cephalexin 500 mg tablet 500 mg PO QID 5 Days Qty: 20 0RF Continued loratadine [Claritin] 10 mg tablet 10 mg PO DAILY Qty: 90 4RF sertraline 100 mg tablet 100 mg PO DAILY Qty: 90 3RF Rx Instructions: 1/2 tablet a.m. for two weeks, the one tab daily benzonatate 200 mg capsule 200 mg PO BID-TID PRN (Reason: cough) Qty: 20 0RF Patient Comments: RX complete 07/24/22 CT acetaminophen [Tylenol] 325 MG tablet 650 mg PO Q6H PRN ibuprofen 400 mg tablet 400 mg PO TID PRN (Reason: pain) Qty: 90 6RF albuterol sulfate 90 mcg/actuation HFA aerosol inhaler 2 puff inhalation QID PRN (Reason: shortness of breath or wheezing) Qty: 8.5 1RF omeprazole 40 mg capsule,delayed release(DR/EC) 40 mg PO DAILY Qty: 90 3RF Discharge Instructions Instructions: Finger Laceration (ED) Additional Instructions: Please return immediately to the emergency department for any new or significant worsening symptoms otherwise take antibiotics as prescribed and you may start your dose this evening and then begin tomorrow morning as well. It is very important that you follow-up with [facility] orthopedic department and they should be reaching out to you but if you do not hear from them tomorrow afternoon please call their office. Referrals: [facility] [place] [Outside] Medical Decision Making Patient presenting to the emergency department for chief complaint of left hand/finger lacerations. Patient states just prior to arrival he was using a skill saw when the saw horse tipped over causing him to cut his left index and middle finger with a saw. Patient denies any other injury or trauma, states he had a tetanus within the last couple years. Physical exam shows a single layer laceration to the left middle finger with slight decrease sensation distal to injury but full range of motion and tendons intact. On the index finger patient has a significant medial laceration that is deep and there is noted decreased sensation distal to the injury. Flexion and extension of the digit is intact. We will perform radiological imaging to look for any bony involvement. Review of radiological imaging and radiologist interpretation shows acute fractures at the ulnar aspect of the second distal phalanx with some involvement of the DIP and suspected avulsion fracture also at the DIP. Given bony involvement, decrease sensation distal to injury and significant hand laceration will consult with hand at [facility] before repair of wound. Spoke to on-call orthopedist resident who is taking call for hand. After discussion of case he recommended copious irrigation, Ancef, and wound repair here with follow-up at [facility]. Patient was agreeable with this plan of care. Please see wound repair note for wound repair. Laceration of index finger was copiously irrigated with 1 L of fluids and was approximated to best ability given some missing tissue. Finger was splinted and patient placed upon Keflex for further infection control pending specialist follow-up given open fracture with joint involvement and loss of sensation distal to injury. Cap refill was intact. Patient was given limited supply of narcotic to help with pain control overnight and was encouraged to return for new or worsening symptoms. After discussion of diagnosis and plan of care patient has no further needs, ques tions, or concerns and states clear understanding to return to the emergency department for any worsening symptoms. This documentation was generated using [employer] dictation system, please disregard any oddities of phrase or misspellings. Imaging Data Radiologic Study: Imaging: X-Ray Radiologist's impression: Exam(s) PROCEDURE INFORMATION: Exam: XR Left Finger(s) Exam date and time: 07/24/2022 18:05 Age: 46 years old Clinical indication: Other: Laceration TECHNIQUE: Imaging protocol: Radiologic exam of the left fingers. Views: Minimum 2 views. COMPARISON: No relevant prior studies available. FINDINGS: Bones/joints: Acute fracture, ulnar base of the 2nd distal phalanx, 1 mm ulnar distraction, minimal involvement of the 2nd DIP joint. Across the 2nd DIP joint, suspected small avulsion fracture, ulnar aspect of the 2nd middle phalangeal head . Soft tissues: Second digital soft tissue laceration. IMPRESSION: 1. Acute fracture, ulnar base of the 2nd distal phalanx, 1 mm ulnar distraction, minimal involvement of the 2nd DIP joint. 2. Across the 2nd DIP joint, suspected small avulsion fracture, ulnar aspect of the 2nd middle phalangeal head . HPI General Mode of arrival: ambulatory . Date/Time Provider Initiated Documentation: 07/24/22 17:23 . Limitations to Documentation: no limitations . Information obtained by: patient and RN notes reviewed . History of Present Illness 46 year old M presents to the emergency department with the chief complaint of Left hand finger laceration, described as moderate and severe, Quality is described as sharp, and is localized to the left and upper extremity. Patient started experiencing this minute(s) ([employer]) and it has been constant. No relieving factors improve symptom(s), No exacerbating factors reported . Patient notes no other symptoms.. Patient did receive the following treatments prior to arrival, none Related Data Home Medications Medication Instructions Recorded Confirmed acetaminophen 325 mg tablet 650 mg PO Q6H PRN 01/25/15 07/24/22 (Tylenol) ibuprofen 400 mg tablet 400 mg PO TID PRN pain #90 tabs 08/25/19 07/24/22 loratadine 10 mg tablet (Claritin) 10 mg PO DAILY #90 tabs 10/02/20 07/24/22 albuterol sulfate 90 mcg/actuation 2 puff inhalation QID PRN 03/01/21 07/24/22 aerosol inhaler shortness of breath or wheezing #8.5 grams omeprazole 40 mg capsule,delayed 40 mg PO DAILY #90 caps 10/19/21 07/24/22 release sertraline 100 mg tablet 100 mg PO DAILY #90 tabs 11/02/21 07/24/22 benzonatate 200 mg capsule 200 mg PO BID-TID PRN cough #20 01/10/22 01/10/22 caps cephalexin 500 mg tablet 500 mg PO QID 5 days #20 tabs 07/24/22 Previous Rx's Medication Instructions Recorded ibuprofen 400 mg tablet 400 mg PO TID PRN pain #90 tabs 08/25/19 loratadine 10 mg tablet (Claritin) 10 mg PO DAILY #90 tabs 10/02/20 albuterol sulfate 90 mcg/actuation 2 puff inhalation QID PRN 03/01/21 aerosol inhaler shortness of breath or wheezing #8.5 grams omeprazole 40 mg capsule,delayed 40 mg PO DAILY #90 caps 10/19/21 release sertraline 100 mg tablet 100 mg PO DAILY #90 tabs 11/02/21 benzonatate 200 mg capsule 200 mg PO BID-TID PRN cough #20 01/10/22 caps cephalexin 500 mg tablet 500 mg PO QID 5 days #20 tabs 07/24/22 Allergies Allergy/AdvReac Type Severity Reaction Status Date / Time oxycodone AdvReac Mild Nausea Verified 07/24/22 17:24 General Stated Complaint: Laceration BLAZE: 3 Review of Systems Musculoskeletal Musculoskeletal: Reports as per HPI and Denies limited range of motion Integumentary/Breasts Skin/Breast: Reports as per HPI and Reports wounds PFSH All Active Problems (Updated 07/24/22 @ 21:45 by Uche Helton NP) Laceration of finger, left, complicated (Acute) Cough (Acute) Otitis externa (Acute) COVID-19 (Acute ~02/27/21) 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 (Acute) 11/30 Elevated fasting glucose (Acute) Allergy (Chronic) Environmental Mood disorder (Acute) Hyperlipemia (Acute) Anxiety (Chronic) Increased body mass index (BMI) (Chronic) Diverticula of colon (Chronic) Colorectal polyps (Chronic ~06/16/18) Medical History Chronic pain following surgery or procedure after vasectomy Diverticulitis large intestine w/o perforation or abscess w/o bleeding Sacral fracture, closed Surgical History H/O esophagogastroduodenoscopy (~11/15/20) 11/2020-Aquino's 06/2018- Aquino's H/O eye surgery 1985 lazy eye H/O skin graft left arm H/O unilateral orchiectomy left H/O vasectomy (~10/2008) S/P colonoscopy (~06/16/18) Family History Paternal Grandfather , 61 Colon cancer Paternal Cousin Colon cancer Maternal Grandfather , 92 Heart disease Heart attack Mother Alcohol abuse Father Asthma Hyperlipidemia Alcohol abuse Sister Multiple sclerosis Sister No problems noted. Sister No problems noted. Brother Substance abuse Maternal Grandmother , 71 No problems noted. Paternal Grandmother , 66 No problems noted. Social History Smoking/Tobacco Use Status: Former Tobacco Use tobacco type: cigarettes Quit Date: 02/11/16 Tobacco: How many years used: 6 Smoking risk assessment performed?: Yes Alcohol Intake: current Alcohol Intake frequency: holidays/special occasions only Alcohol type: beer and hard liquor Drug use: Never Substance use type: does not use Counseling given: No Caregiver/Support person: No Household members: spouse and children Housing: house Communication Needs: None Do you need help understanding health information?: Never Pets and animals: Yes Pets and animals: cat(s), dog(s) and other Details: Rabbit Sexually active: Yes Do you think of yourself as: straight/heterosexual Current gender identity: male What is your relationship status?: How often do you talk on the phone with friends or family?: three or more times per week How often do you get together with friends or relatives?: once per week How often do you attend yarsani or sikh services?: 4 or more times per year Do you belong to any clubs or organized social groups?: yes Panel score (0-1 are the most socially isolated patients): 4 What type of physical activity do you participate in: bicycling Duration: 15-30 minutes/day Frequency: 1-2 times per week Shanell/Gnosticist: None Special shanell needs: No Seatbelt use: always Helmet use: Yes Helmet use: always Drive intox or ride w/intox truck driver instructor: No Do you feel safe at home: Yes Do you feel safe in your relationship?: Yes Exam Const General: cooperative, no acute distress and not ill appearing Orientation: alert, awake and oriented x3 HENNE Mouth: moist mucous membranes Resp Effort & Inspection: normal respiratory effort, able to speak in complete sentences and no respiratory distress Cardio Rate: regular rate Rhythm: regular rhythm Pulses: normal peripheral pulses Skin General skin exam: no rashes or lesions noted Neuro General: patient alert, patient awake, patient oriented x3, moves all extremities and no focal motor deficits Sensory Exam: no sensory deficits noted Extrem General: normal exam except as noted Left upper extremity: hand Details: normal capillary refill, neuromotor exam normal, neurosensory exam abnormal Details: digital nerve sensory function abnormal (Decreased light sensation) Location: in the 2nd digit and in the 3rd digit, tendon exam normal, tenderness Location: of the 2nd digit and of the 3rd digit, vascular exam Details: radial pulse present and laceration 3rd digit palmar aspect central Details: irregular, actively bleeding and involving subcutaneous tissue Course Vital Signs Vital signs: Vital Signs Temperature 36.3 C L 07/24/22 17:19 Pulse 68 07/24/22 17:19 Respiratory Rate 15 07/24/22 17:19 Blood Pressure 156/91 H 07/24/22 17:19 Pulse Oximetry 98 07/24/22 17:19 Temperature 36.3 C L 07/24/22 17:19 Temperature Source Temporal Artery Scan 07/24/22 17:19 Pulse 68 07/24/22 17:19 Respiratory Rate 15 07/24/22 17:19 Respiratory Effort Normal 07/24/22 17:23 Blood Pressure 156/91 H 07/24/22 17:19 Blood Pressure Position Sitting 07/24/22 17:19 Pulse Oximetry 98 07/24/22 17:19 Oxygen Delivery Method Room Air 07/24/22 17:19 Oxygen Flow Rate 0 07/24/22 17:19 Pain Level 8 07/24/22 17:24 Procedures Laceration Laceration 1: Site: hand Side (If applicable): left Size (cm): 2.5 Description: linear Depth: simple, single layer Local Anesthetic: Lidocaine 1% Amount of anesthesia used (mL): 3 Pre-repair: wound explored, irrigated extensively and deep structures intact Skin layer closed with: other (Prolene) Size (cm): 5-0 Number of sutures: 4 Technique: simple, interrupted Laceration 2: Site: hand Side (If applicable): left (Index finger) Size (cm): 5 Description: stellate and irregular Depth: involves muscle layer Local Anesthetic: Lidocaine 1% Amount of anesthesia used (mL): 4 Pre-repair: wound explored, irrigated extensively, deep structures intact and wound margins revised Skin layer closed with: other (Prolene) Size (cm): 5-0 Number of sutures: 8 Technique: simple, interrupted PAWSS Have you Been Recently Intoxicated or Drunk Within the Last 30 days?: No Have you Ever Experienced Previous Episodes of Alcohol Withdrawal?: No Have you ever Experienced Withdrawal Seizures?: No Have you ever Experienced Delirium Tremens(DT)s?: No Have you ever undergone Alcohol Rehabilitation Treatment (i.e, inpt ot outpatient treatment programs)?: No Have you ever Experienced Blackouts?: No Have you ever Combined Alcohol with other Downers within the last 90 days?: No Have you ever Combined Alcohol with any other Substance of Abuse during the last 90 days?: No Result: 0
--- NOTE | 2022-07-24 18:41 | DI.VRAD_ITS ---
PROCEDURE INFORMATION: Exam: XR Left Finger(s) Exam date and time: 07/24/2022 18:05 Age: 46 years old Clinical indication: Other: Laceration TECHNIQUE: Imaging protocol: Radiologic exam of the left fingers. Views: Minimum 2 views. COMPARISON: No relevant prior studies available. FINDINGS: Bones/joints: Acute fracture, ulnar base of the 2nd distal phalanx, 1 mm ulnar distraction, minimal involvement of the 2nd DIP joint. Across the 2nd DIP joint, suspected small avulsion fracture, ulnar aspect of the 2nd middle phalangeal head . Soft tissues: Second digital soft tissue laceration. IMPRESSION: 1. Acute fracture, ulnar base of the 2nd distal phalanx, 1 mm ulnar distraction, minimal involvement of the 2nd DIP joint. 2. Across the 2nd DIP joint, suspected small avulsion fracture, ulnar aspect of the 2nd middle phalangeal head . Dictated and Authenticated by: Jade Page MD. Ordering:CONNIE Ivey MD
[2022-07-24] MEDS: HYDROcodone 5/Acetaminophen 325 TAB PO (18:59)
[2022-07-24] MEDS: Cellulose,Oxidized 2X3 PKT 1 EACH MC (21:23)
[2022-07-24] MEDS: Cephalexin 500 MG CAP, 4 CAPS/BTL PO (21:55)
[2022-07-24 21:56] VITALS: PULSE 85; RESP 16; O2SAT 98
== END 2022-07-24 21:57 | disposition home or self-care (01) ==
PROVIDERS: Emergency Provider Nurse Practitioner Family; PCP Nurse Practitioner Family
DX: S61.211A Laceration without foreign body of left index finger without damage to nail, initial encounter (principal); S61.213A Laceration without foreign body of left middle finger without damage to nail, initial encounter; S62.631A Displaced fracture of distal phalanx of left index finger, initial encounter for closed fracture; W29.3XXA Contact with powered garden and outdoor hand tools and machinery, initial encounter
CPT/HCPCS: 12002; 96365; 99284; 73140; J0690

== ENCOUNTER 2023-04-17 10:46 | Day surgery (SDC) | payer BC, SELFPAY ==
--- NOTE | 2023-04-16 20:58 | PDOC.DSDIS_ITS ---
Date of service: 04/17/23 Time of Service: 13:30 Discharge Plan Disposition Patient Disposition: Home Condition: Good Discharge Details Reason For Visit: EGD and colonoscopy Attending Provider: Mark Carpenter Primary Care Provider: Rogerio Gaitan Home Meds and New Rx's Prescriptions: Continued loratadine [Claritin] 10 mg tablet 10 mg PO DAILY Qty: 90 4RF bupropion HCl 100 mg tablet 100 mg PO .QD Qty: 90 4RF omeprazole 40 mg capsule,delayed release(DR/EC) See Rx Instructions .ROUTE .COMPLEX Qty: 90 3RF Dose Instruction: TAKE ONE CAPSULE BY MOUTH EVERY DAY Rx Instructions: TAKE ONE CAPSULE BY MOUTH EVERY DAY acetaminophen [Tylenol] 325 MG tablet 650 mg PO Q6H PRN ibuprofen 400 mg tablet 400 mg PO TID PRN (Reason: pain) Qty: 90 6RF Discontinued polyethylene glycol 3350 17 gram/dose powder 238 g PO ONCE Qty: 238 0RF Rx Instructions: take per colonoscopy instructions bisacodyl [Dulcolax (bisacodyl)] 5 mg tablet,delayed release (DR/EC) 5 mg PO ONCE Qty: 4 0RF Rx Instructions: take per colonoscopy instructions Discharge Instructions Instructions: Diverticulosis (GEN), Colorectal Polyps (GEN), Aquino Esophagus (GEN), Diverticulosis Diet (GEN) Additional Instructions: Abdullahi, we are able to complete your endoscopies today without any difficulty. I do see clinical signs of Aquino's esophagus in the area where your esophagus connects to your stomach. I performed biopsies of this area to survey the tissue and make sure nothing worrisome is changing. He also have a little bit of inflammation in your stomach that is consistent with chronic gastritis and gastroesophageal reflux disease. I performed biopsies of the stomach to rule out Helicobacter pylori as a source of the irritation. Your colonoscopy also went very smoothly. You do have some diverticulosis, which are small weak spots in the muscular portion of the colon wall. I do not think it has anything to worry about at this point. He also had 2 polyps that looked very simple. I removed these both completely. When I have the results of the polyp report, as well as the biopsies from your stomach, the office will be in touch with recommendations for your next endoscopies. If you have any questions in the meantime, please do not hesitate to call at any point. 1. If tolerated, consume a soft, low fiber diet for 1-2 days. 2[address] Do not drive, drink alcohol, operate machinery, make critical decisions, or do activities that require coordination or balance for 24 hours. 3. Because air was put into your colon during the procedure, expelling air from your rectum (passing gas or farting) is normal. 4. You may not have a bowel movement for 1-3 days because of the colonoscopy prep. This is normal. 5. You may experience a sore throat for 24 to 48 hours. You may use throat lozen ges or gargle with warm salt water to relieve the discomfort. 6. Because air was put into your stomach during the procedure, you may experience some belching. 7. Go directly to the emergency room if you notice any of the following: Develop chills (warm to touch), or if you have a thermometer and your temperature is above 101 Difficulty breathing or difficultly swallowing Persistent vomiting Severe abdominal pain, other than gas cramps Severe chest pain Black, tarry stools Any bleeding ? exceeding one tablespoon 8. Call your physician if the site where your intravenous was started becomes red, swollen, painful, and warm to touch. 9. Your physician has reviewed your pre-procedure medications. Please continue to take those medications as previously ordered. You will be given specific information/education regarding any changes to your medications before leaving. 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
--- NOTE | 2023-04-16 20:59 | W.PM.ENDDOP ---
Date of service: 04/17/23 Time of Service: 13:32 Endoscopy Report DATE OF PROCEDURE: 04/17/23 PRE-OP DIAGNOSIS: Barretts esophagus and screening colonsocopy POST-OP DIAGNOSIS: other (Aquino's esophagus; diverticulosis, colon polyps) PROCEDURE: EGD and colonoscopy SURGEON: Mark Carpenter ANESTHESIA TYPE: General:No Airway ESTIMATED BLOOD LOSS: 10 PATHOLOGY: other (GE junction x 4, gastric antrum and body random biopsy; 0.25 cm colon polyps at 25 cm from the anus x 2) COMPLICATIONS: None DISPOSITION: same day INDICATIONS: Abdullahi is a 47 year old man with a history of Aquino esophagus who needs a screening EGD and screening colonscopy PREP: Miralax/Dulcolax PROCEDURE START TIME: 12:43 PROCEDURE END TIME: 13:12 COLONOSCOPY RETRACTION TIME: 13 FINDINGS: Short segment Aquino's esophagus extending from 35 cm to 37 cm from the incisors. Mild gastritis. Diverticulosis, 0.25 cm colon polyps at 25 cm from the anus. PROCEDURE DESCRIPTION: After the initiation of anesthesia, and with the assistance of a bite block, I advanced a standard gastroscope through the mouth past the hypopharynx and towards the esophagus.? The upper and mid portions of the esophagus were totally normal-appearing. The Z-line was irregular, and first encountered around 35 cm from the incisors. Irregularity extended down to about 37 cm, where the GE junction appeared. Narrowband imaging was used to assist with analysis. Clinical features were consistent with Aquino's esophagus. Four-quadrant biopsies were performed here. This was done with cold forceps without any issue. The gastroscope was then advanced down into the stomach and retroflexed. I did not see any evidence of hiatal hernias. The camera was turned antegrade and navigated down around the incisura angularis. There was some mild erythema around the gastric antrum and pylorus. The gastroscope then traversed the pylorus without any difficulty. The duodenum was totally normal-appearing. Camera was advanced down to the third portion of the duodenum without any issues. I saw no abnormalities here. The cath was then brought up into the stomach, and random biopsies of the gastric antrum and body were performed to rule out Helicobacter pylori as a source of the gastritis. This was done with cold forceps without issue. The stomach was then emptied, and the camera was brought out along the length of the esophagus without any issues. Next, we moved Abdullahi into the left lateral decubitus position. I began by performing an external anorectal exam.? Perineum and skin were normal, as was the anal verge.? There was no evidence of external hemorrhoids.? Next, I performed a digital rectal exam.? I did not appreciate any abnormal findings.? Next, I advanced a colonoscope into the rectal vault.? I performed retroflexion.? I this was normal.? Using insufflation, I then advanced the colonoscope beyond the rectal folds and into the sigmoid colon before advancing towards the cecum.? There was sigmoid diverticulosis..? The scope was noted to be in the cecum by identification of the ileocecal valve and appendiceal orifice.? I then began withdrawing the colonoscope using repeated irrigation as necessary for full evaluation of the colonic mucosa. ?Around 25 cm from the anus were 2 polyps. These were both flat. Narrowband imaging was used for analysis. Generally they appeared consistent with hyperplastic polyps. However, to be safe, I did perform cold forceps polypectomy of these 2 sites. There was minimal bleeding. Once the scope was withdrawn to the level of the rectum, great care was taken to examine portions of the rectal folds.? Finally, the scope was withdrawn and the patient was brought to the same-day surgery recovery unit as the anesthetic wore off. ?The findings and instructions were shared with the patient prior to discharge. [place] bowel prep score was 3, 3, 3 from right to left.
--- NOTE | 2023-04-17 06:16 | ANES.PREOP_ITS ---
General Info Date of Service Date Performed: 04/17/23 Height: 5 ft 8 in Weight: 111.584 kg Body Mass Index (BMI): 37.4 Surgical Procedure: Operation Date: 04/17/23 12:05 Proposed Procedure Side Surgeon p Colonoscopy/Gastroscopy Mark Carpenter MD Meds Allergies and Home Medications Allergies Allergy/AdvReac Type Severity Reaction Status Date / Time oxycodone AdvReac Mild Nausea Verified 04/14/23 13:32 Home Medication Medication Instructions Recorded acetaminophen 325 mg tablet 650 mg PO Q6H PRN 01/25/15 (Tylenol) ibuprofen 400 mg tablet 400 mg PO TID PRN pain #90 tabs 08/25/19 loratadine 10 mg tablet (Claritin) 10 mg PO DAILY #90 tabs 10/02/20 bupropion HCl 100 mg tablet 100 mg PO .QD #90 tabs 03/10/23 omeprazole 40 mg capsule,delayed See Rx Instructions .Route 03/10/23 release .COMPLEX #90 caps Current Visit Medications: Current Medications Generic Name Dose Route Start Last Admin Trade Name Peterq PRN Reason Stop Dose Admin Hyoscyamine Sulfate 0.125 mg 04/16/23 21:01 Hyoscyamine 0.125 Mg Sl/Oral/Chew SL 05/16/23 21:00 DIRECTED PRN Ringer's Solution 1,000 mls @ 80 mls/hr 04/17/23 06:00 IV 04/17/23 23:59 INFUSION PENDING SALE TO [facility] IV Miscellaneous Supplies 1 each 04/17/23 06:00 Iv Access IV 04/17/23 23:59 DIRECTED NANCY Ondansetron HCl 4 mg 04/16/23 21:01 Ondansetron 4 Mg/2 Ml Vial IVP 05/16/23 21:00 Q4H PRN PRN Nausea / Vomiting Sodium Chloride 0 ml 04/17/23 06:00 Normal Saline Flush 10 Ml Syr IV 04/17/23 23:59 PRN PRN Sodium Chloride 0 ml 04/17/23 06:00 Normal Saline 10 Ml Vial IJ 04/17/23 23:59 DIRECTED PRN Sterile Water 0 ml 04/17/23 06:00 Water,Injection,Sterile 10 Ml Vial IJ 04/17/23 23:59 DIRECTED PRN PFSH Active Problems Active Problems: Problem Status Onset Code Family history of abdominal aortic aneurysm (AAA) Z82.49 Elevated fasting glucose R73.01 Allergy T78.40XA Mood disorder F39 Hyperlipemia E78.5 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 K22.70 Anxiety F41.9 Increased body mass index (BMI) R63.8 Diverticula of colon K57.30 Gastritis ~06/16/18 K29.70 Esophagitis ~06/16/18 K20.9 Colorectal polyps ~06/16/18 K63.5 H/O diverticulitis of colon Z87.19 Medical History Medical History Cough Otitis externa COVID-19 (~02/27/21) Sacral fracture, closed Chronic pain following surgery or procedure after vasectomy Diverticulitis large intestine w/o perforation or abscess w/o bleeding Surgical History Surgical History H/O esophagogastroduodenoscopy (~11/15/20) 11/2020-Aquino's 06/2018- Aquino's S/P colonoscopy (~06/16/18) H/O eye surgery 1985 lazy eye H/O unilateral orchiectomy left H/O vasectomy (~10/2008) H/O skin graft left arm Tobacco Smoking/Tobacco Use Status: Former Tobacco Use Passive smoking exposure: Yes Alcohol Alcohol Intake: current Alcohol intake frequency: holidays/special occasions only Alcohol type: beer and hard liquor Substance Use Substance use: Never Substance use type: does not use Vital Signs and Lab Results Lab Results Blood Type / Crossmatch: No Data to Display Complete Blood Count: No Data to Display Complete Metabolic Panel: No Data to Display Liver Function Panel: No Data to Display Coagulation Panel: No Data to Display Cardiac Panel: No Data to Display Arterial Blood Gas: No Data to Display Venous Blood Gas: No Data to Display Pancreas Panel: No Data to Display Thyroid Panel: No Data to Display Infectious Disease: No Data to Display Blood Cultures: No Data to Display Toxicology Panel: No Data to Display Imaging and Studies Imaging and Studies Study information below may be from another EMR and interpreted by another provider. Please see original notes in EMR for more complete details. Echocardiogram Summary: 04/05: LVEF 55-60%, mild MR/TR. Anesthesia Assessment and Plan Anesthesia History Personal History: No History of Anesthesia Complications Family History: No Family History of Anesthesia Complications Exercise Tolerance Exercise Tolerance: Metabolic Equivalents>4 Cardiac & Pulmonary Exam Cardiac Exam: Normal S1/S2 Heart Sounds Pulmonary Exam: Clear Bilateral Breath Sounds Implantable Cardiac Device Does patient have a Pacemaker or an ICD?: No Airway Exam Known Difficult Airway: No Mallampati Class: 2 Mouth Opening: Normal (> 3cm) Thyromental Distance: Greater than 3 cm Neck Range of Motion: Full ROM Neck Circumference: Thick Teeth Condition: Normal Dentition ASA Classification ASA Score: ASA 2 Emergency Case?: No NPO Status NPO Status: NPO Clears >2 hours, Solids >8 hours Anesthesia Plan Resuscitation Status: Full Code Anesthesia Technique: General Anesthesia Airway Planned: Natural Airway Monitors Used: Standard Monitors Preoperative Comments:: 47 yo male for EGD/colo. Sig PMHx: barretts/GERD (omeprazole), anxiety/depression (bupropion), former s moker, occ EtOH. Previous Anes: - EGD, viscous lido, prop (~450 mg), natural airway, no issues. - EGD, 4%, prop (~400 mg), natural airway, no issues. - EGD/colo, fent/midaz/glyco, prop, natural airway, no issues. - orchiectomy, LMA 4, no issues.
[2023-04-17 11:01] VITALS: BP 124/89; PULSE 80; RESP 16; TEMP 36.6; O2SAT 99
[2023-04-17] MEDS: Lactated Ringers 1,000 ML 80 ML IV (11:23)
[2023-04-17 11:29] VITALS: BMI 37.4
--- NOTE | 2023-04-17 12:45 | BOWEL_PTH ---
PATIENT: Azar Huerta LOC: [facility] U#:[id number] AGE/SX: 47/M ROOM: RE04/17/[address]: Mark Carpenter MD : 1975 BED: DIS: 04/17/2023 SPEC #: [id number] RECD: 04/17/23 17:14 STATUS: ULYSSES RE #: [id number] CAROL: 04/17/23 12:[address]: Mark Carpenter DEPT: Surgical Specimen RECD BY: Shawanda Terrell ENTERED: 04/17/23 17:15 SP TYPE: Bowel OTHR DR: Rogerio Alamo DNP Tissues: 1 - ESOPHAGUS BIOPSY 2 - STOMACH BIOPSY 3 - STOMACH BIOPSY 4 - BIOPSY BOWEL Procedures: GROSS AND MICRO LEVEL 4 Comments: [id number]
[2023-04-17 13:17] VITALS: BP 133/78; PULSE 77; RESP 16; TEMP 36.5; O2SAT 100
[2023-04-17 13:47] VITALS: BP 129/76; PULSE 73; RESP 16; TEMP 36.6; O2SAT 99
--- NOTE | 2023-04-17 13:48 | W.ANESPOSTOP ---
Postoperative Evaluation Date, Time and Location Date Performed: 04/17/23 Time Performed: 13:40 Patient Location: Day Surgery Unit Vital Signs Most Recent Imported Vital Signs: Most Recent Vital Signs Temp Pulse Resp BP Pulse Ox 36.5 C 77 16 133/78 100 04/17/23 13:17 04/17/23 13:17 04/17/23 13:17 04/17/23 13:17 04/17/23 13:17 Pain Score Most Recent Pain Score: Most Recent Pain Score Pain Level 0 04/17/23 13:17 Assessment Mental Status: Awake (Alert & Oriented to Patient Baseline) Airway and Respiratory Function: Patent airway with normal (patient baseline) respiratory exam Cardiovascular Function: Hemodynamically Stable Hydration Status: Adequately Hydrated Nausea & Vomiting: No Nausea or Vomiting Pain: Pt. Denies Any Pain Peripheral Nerve Block: Patient did not receive a nerve block
== END 2023-04-17 14:17 | disposition home or self-care (01) ==
LOC: SUR 10:46
PROVIDERS: PCP Nurse Practitioner Family; Visit Provider Surgery
PROC: (CPT 45380; principal; 2023-04-17 12:00)
DX: K22.70 Barrett's esophagus without dysplasia (principal); K63.5 Polyp of colon; K57.30 Diverticulosis of large intestine without perforation or abscess without bleeding; Z87.19 Personal history of other diseases of the digestive system; Z87.891 Personal history of nicotine dependence; Z86.59 Personal history of other mental and behavioral disorders; K31.89 Other diseases of stomach and duodenum; K22.89 Other specified disease of esophagus
CPT/HCPCS: 45380; 43239; 88305; J2001; J2405; J2704

== ENCOUNTER 2025-01-07 02:20 | Outpatient (CLI) | payer BC, SELFPAY ==
[2025-01-07 08:47] LABS: HCT 44.2 % (40.0-50.0); HGB 15.2 g/dL (13.5-17.5); MCH 30.4 pg (27.0-33.0); MCHC 34.4 % (32.0-36.0); MCV 88 fL (80-95); MPV 10.5 fL (8.0-11.0); Platelet Count 337 10^3/uL (130-400); RBC 5.00 10^6/uL (4.36-5.78); RDW 12.9 % (11.8-14.1); RDW-SD 41.8 fL; WBC 11.81 10^3/uL (4.4-10.8)
[2025-01-07 09:23] LABS: Hemoglobin A1C 5.7 % (<5.7)
[2025-01-07 09:40] LABS: ALT 45 U/L (10-49); AST 25 U/L (<34); Albumin 4.6 g/dL (3.2-5.0); Alkaline Phosphatase 82 U/L (46-116); Anion Gap 10.2 mmol/L (3-11); BUN 16 mg/dL (9-23); Bilirubin, Total 0.50 mg/dL (0.2-1.2); CO2 23.8 mmol/L (20.0-31.0); Calcium 8.7 mg/dL (8.3-10.6); Chloride 107 mmol/L (98-107); Cholesterol 239 mg/dL (<200); Glucose 113 mg/dL (74-106); HDL Cholesterol 42 mg/dL (>40); Potassium 4.5 mmol/L (3.5-5.1); Sodium 141 mmol/L (136-145); Total Protein 6.8 g/dL (5.7-8.2)
[2025-01-07 09:42] LABS: TSH (W/Ref FT4) 1.03 uIU/mL (0.55-4.78)
[2025-01-10 09:30] LABS: Hepatitis C Ab w Rflx HCV PCR Negative (Negative)
[2025-01-10 10:23] LABS: HBs Antibody, Quant <3.1 mIU/mL (See Note); Hepatitis B Surface Antigen Negative (Negative)
[2025-01-12 14:51] LABS: Testosterone, Free 9.55 ng/dL (4.26-16.4)
== END 2025-01-07 02:21 | disposition home or self-care (01) ==
LOC: LBO 02:20
PROVIDERS: PCP Nurse Practitioner Family; Visit Provider Nurse Practitioner Family
DX: E78.5 Hyperlipidemia, unspecified (principal); Z90.79 Acquired absence of other genital organ(s); R53.83 Other fatigue; Z11.59 Encounter for screening for other viral diseases; R73.01 Impaired fasting glucose; R03.0 Elevated blood-pressure reading, without diagnosis of hypertension
CPT/HCPCS: 36415; 80053; 80061; 84402; 84403; 85027; 86704; 86706; 86803; 87340; 82043; 82570; 83036; 84443

== ENCOUNTER 2025-01-20 12:23 | Emergency (ER) | payer BC, SELFPAY ==
[2025-01-20 12:28] VITALS: BP 166/110; PULSE 137; RESP 20; TEMP 36.8; O2SAT 98
[2025-01-20 12:31] VITALS: BP 166/110; PULSE 137; RESP 20; TEMP 36.8; O2SAT 98
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
--- NOTE | 2025-01-20 14:02 | NUR.NOTE ---
Appointment with [facility] for tomorrow @ 1120. Nursing Note:
[2025-01-20] MEDS: Ciprofloxacin 0.3% 2.5 ML BTL OS (14:10)
== END 2025-01-20 14:12 | disposition home or self-care (01) ==
PROVIDERS: Emergency Provider Physician Assistant; PCP Nurse Practitioner Family
DX: S05.00XA Injury of conjunctiva and corneal abrasion without foreign body, unspecified eye, initial encounter (principal); X58.XXXA Exposure to other specified factors, initial encounter
CPT/HCPCS: 99283